=== PATIENT | female | born 1950 | race Caucasian/White ===

== ENCOUNTER → 2018-10-19 | Day surgery (SDC) | payer OTHER ==
[2018-10-18 09:59] LABS: BASOPHILS # (AUTO) 0.1 (0.0-0.1); BASOPHILS % 0.5 % (0.0-1.0); EOSINOPHILS # (AUTO) 0.2 (0.0-0.4); EOSINOPHILS % 2.2 % (0.0-6.0); HEMATOCRIT 40.5 % (34.2-44.1); HEMOGLOBIN 12.6 g/dL (12.0-16.0); LYMPHOCYTES % 9.3 % (18.0-39.1); MEAN CORPUSCULAR HEMOGLOBIN 29.3 pg (28-32); MEAN CORPUSCULAR HGB CONC 31.1 g/dL (31-35); MEAN CORPUSCULAR VOLUME 94.2 fL (81-99); MONOCYTES # (AUTO) 0.8 (0.2-0.8); MONOCYTES % 7.4 % (4.4-11.3); NEUTROPHILS # (AUTO) 8.3 (2.1-6.9); NEUTROPHILS % 79.8 % (38.7-80.0); PLATELET COUNT 290 x10e3/uL (140-360); RED CELL DISTRIBUTION WIDTH 17.9 % (11.7-14.4)
--- NOTE | 2018-10-18 10:14 | Diagnostic Imaging Report ---
PROCEDURE: X-RAY CHEST, TWO VIEWS COMPARISON: Patients [facility], DX, CHEST SINGLE (PORTABLE), 02/05/2014, 16:09. INDICATIONS: PRE-OP, DENIES CHEST COMPLAINTS FINDINGS: LUNGS: No consolidations or edema. PLEURA: No effusions or pneumothorax. HEART & MEDIASTINUM: The heart is within normal size-limits. Tortuous thoracic aorta. Focal eventration in the midportion of the left hemidiaphragm. BONES & SOFT TISSUES: No acute findings. Degenerative changes of both shoulders. CONCLUSION: No acute thoracic abnormality. Mayco Delgado D.O. Dictated by: Mayco Delgado D.O. on 10/18/2018 at 10:24 Electronically approved by: Mayco Delgado D.O. on 10/18/2018 at 10:24
[2018-10-18 10:34] LABS: BLOOD UREA NITROGEN 10 mg/dL (7-26); BUN/CREATININE RATIO 13 (6-25); CALCIUM 9.5 mg/dL (8.4-10.2); CARBON DIOXIDE 24 mmol/L (22-29); CHLORIDE 101 mmol/L (98-107); CREATININE, SERUM 0.75 mg/dL (0.57-1.11); EST GLOMERULAR FILTRATION RATE > 60 ML/MIN (60-); GLUCOSE 99 mg/dL (74-118); SODIUM 137 mmol/L (136-145)
[~2018-10-19] MED LIST: ACETAMINOPHEN 1000 MG/100 ML IV ONE; ADVAIR 500/501 EA INH; ALENDRONATE SOD70 MG; ALLERGY TAB; ASPIR 8181 MG PO; ASPIRIN325 MG PO; ATORVASTATIN CA40 MG PO; BUPIVACAINE HCL 0.5% INJ 30 ML VIAL INJ ONE; CALCIUM PO; CALCIUM600 MG PO; CEFAZOLIN SOD 2 GM/D5W 50ML 50 ML IV ONE; CITALOPRAM HBR20 MG PO; DIGOXIN125 MCG PO; DILT-CD240 MG PO; DILTIAZEM 24HR120 M1 PO; FENTANYL CITRATE/PF 100MCG/2 ML INJ ONE; FISH OIL 1,0001 EAC2 PO; FUROSEMIDE40 MG PO; GLIMEPIRIDE1 MG PO; GLUCOPHAGE500 MG PO; HYDROCHLOROTHIA25 MG PO; IRON325 MG PO; LANOXIN250 MCG PO; LEVOCETIRIZINE D5 MG PO; LIDOCAINE HCL 2% LOCAL INJ 5 ML SDV VIAL INJ ONE; LIPITOR20 MG PO; LISINOPRIL5 MG PO; METFORMIN HCL500 MG PO; METHYLENE BLUE 1% INJ 10 ML VIAL INJ ONE; MIDAZOLAM HCL 2 MG/2 ML VIAL ONE; OMEPRAZOLE40 MG PO; ONDANSETRON HCL INJ 2 MG/ML VIAL ONE; PHENYLEPHRINE HCL 1% 10 MG/ML VIAL ONE; PROPOFOL IV EMULSION 10 MG/ML 20 ML VIAL ONE; ROCURONIUM BROMIDE 10 MG/ML 5ML VIAL ONE; SEVOFLURANE INHAL SOLN 250 ML PEN BTL ONE; SPIRIVA18 MCG INH; SUGAMMADEX SODIUM 200 MG/2 ML VIAL IV ONE; ULTRAM50 MG PO; XARELTO15 MG; XOPENEX HFA15 GM INH; ZYRTEC10 M3 PO
--- OUTSIDE RECORDS SUMMARY | 2018-10-19 07:09 | XMS REPORT ---
Author Author [facility] Address Unknown Phone Unavailable Care Team Providers Care Tennis Net Maker Name Role Phone PRECIOUS PELAEZ Unavailable Unavailable Matthew JACOME Unavailable Unavailable Problems This patient has no known problems. Allergies, Adverse Reactions, Alerts This patient has no known allergies or adverse reactions. Medications This patient has no known medications. Results Test Description Test Time Test Comments Text Results Atomic Results Result Comments CHEST 2 VIEWS 2018-10-18 10:24:00 [facility] [address] [address] Patient Name: MARIANO DELACRUZ MR #: [id number] : 1950 Age/Sex: 68/F Req #: [id number] Adm Physician: Ordered by: PRECIOUS PELAEZ MD Report #: [id number] Location: IN Room/Bed: Procedure: [id number] DX/CHEST 2 VIEWS Exam Date: Exam Time: REPORT STATUS: Signed PROCEDURE: X-RAY CHEST, TWO VIEWS COMPARISON: [facility], , CHEST SINGLE (PORTABLE), 02/05/2014, 16:09. INDICATIONS: PRE-OP, DENIES CHEST COMPLAINTS FINDINGS: LUNGS: No consolidations or edema. PLEURA: No effusions or pneumothorax. HEART MEDIASTINUM: The heart is within normal size-limits. Tortuous thoracic aorta. Focal eventration in the midportion of the left hemidiaphragm. BONES SOFT TISSUES: No acute findings. Degenerative changes of both shoulders. CONCLUSION: No acute thoracic abnormality. Mae Delgado D.O. Dictated by: Mae Delgado D.O. on 10/18/2018 at 10:24 Electronically approved by: Mae Delgado D.O. on 10/18/2018 at 10:24 Dictated By: MAE DELGADO DO 1024 Transcribed By: KIRILL on 10/18/18 1024 COPY TO: PRECIOUS PELAEZ MD BREAST ULTRASOUND CORE BIOPSY RIGHT 2018-10-02 10:41:25 - BREAST ULTRASOUND CORE BIOPSY RIGHTULTRASOUND GUIDED BIOPSY RIGHT BREAST WITH MARKING DEVICE INSERTED: 09/28/2018CLINICAL: Ultrasound biopsy, right breast. Comparison is made to exams dated 09/15/2018 ultrasound, [facility], and 12/23/2015 mamm[facility] - [facility]. An ultrasound guided biopsy using real-time ultrasound was performed for the palpable spiculated irregular shaped mass located in the right breast at 9 o'clock, 13 cm from the nipple. This was described on the previous mammography and ultrasound reports. The skin was prepped in the usual manner. Local anesthetic was administered to the access site. The abnormality was approached from the lateral aspect. A biopsy needle was placed adjacent to the abnormality under ultrasound guidance. Once the needle was documented to be in the correct location, a specimen was obtained using a MISSION biopsy device. A clip was inserted into the biopsy cavity. The specimen was sent to the laboratory for pathological analysis. IMPRESSION: ULTRASOUND GUIDED BIOPSYUltrasound guided biopsy of the mass in the right breast at 9 o'clock, posterior depth, was successful with no apparent post procedure complications. Waiting for pathology results. A final report will be issued when these become available. FINAL PATHOLOGY:Infiltrating ductal carcinoma (Gaines Headley score 5/9) RECOMMENDATION:Concordant findings, malignant biopsy. Surgical consultation for further management, and complete excision is recommended at this time.Gurdeep Hussein M.D. ss/:10/02/2018 10:41:25 Entry: - 10/02/2018 11:17:12Imaging Technologist: Anna CORDOBA, [facility]- DIAG MAMM RIGHT CAD DIGITAL 2018-09-28 09:05:09 - DIAG MAMM RIGHT CAD DIGITALUNILATERAL RIGHT DIGITAL DIAGNOSTIC MAMMOGRAM WITH CAD - RIGHT BREAST POST-PROCEDURE IMAGING FOR MARKER PLACEMENT: 09/28/2018CLINICAL: Post clip placement. Current mammographic images were evaluated by either a [employer] M-Vu or a CARDFREE ImageChecker CAD (computer aided detection system). Comparison is made to exams dated 09/15/2018 mammogram - [facility], 12/23/2015 mammogram, and 07/05/2013 mammogram - [facility]. The tissue of the right breast is predominantly fatty. Postprocedure mammogram demonstrates biopsy marker clip and clip within the biopsied right breast mass at 9 o'clock, 13 cm from the nipple.IMPRESSION: POST PROCEDURE IMAGING FOR MARKER PLACEMENTSuccessful biopsy marker placement in the biopsied right breast mass.Gurdeep Hussein M.D. ss/:09/28/2018 09:05:09 Legal Aide: Wanda CORDOBA, [facility] BI-RADS: Post-procedure mammogram for marker placement RIBS UNILAT W/CXR [address] [address] Patient Name: MARIANO DELACRUZ MR #: [id number] : 1950 Age/Sex: 67/F Req #: [id number] Adm Physician: Ordered by: HEATHER JACOME MD Report #: [id number] Location: ER Room/Bed: Procedure: [id number] DX/RIBS UNILAT W/CXR Exam Date: 08/27/17 Exam Time: 1110 REPORT STATUS: Signed EXAMINATION: Chest, PA RIBS UNILAT W/CXR INDICATION: Chest pain COMPARISON: Portable chest 02/05/2014 FINDINGS: LINES: None. Heart: Normal cardiac silhouette. Vascular: The pulmonary vasculature is within normal limits. Atherosclerotic calcifications of the aortic arch. Mediastinum: No mediastinal, hilar, or axillary mass or lymphadenopathy. Lungs: No parenchymal mass. No focal consolidation. Pleura: No pleural effusion. No pneumothorax. Bones: No acute osseous abnormality. Degenerative changes of the thoracic spine. Transverse fracture of the left lateral ninth rib. Degenerative changes of the left shoulder. Soft tissues: Normal. Impression: No acute radiographic abnormality. Left ninth rib fracture. Signed by: Dr. Dylan Strange M.D. on 08/27/2017 11:49 AM Dictated By: DYLAN STRANGE MD 1149 Transcribed By: YARY on 08/27/17 1149 COPY TO: HEATHER JACOME MD
[2018-10-19 13:00] VITALS: BP 100/61
--- NOTE | 2018-10-19 15:47 | Operative Report ---
DATE OF PROCEDURE: October 19, 2018 PREOPERATIVE DIAGNOSIS: Carcinoma of the right breast. POSTOPERATIVE DIAGNOSIS: Carcinoma of the right breast. PROCEDURES PERFORMED 1. Right segmental mastectomy. 1. Right axillary sentinel lymph node excision with lymph node mapping. REFINERY OPERATOR POLYMERIZATION PLANT: None. ANESTHESIA: General. INDICATIONS AND FINDINGS: The patient is a 68-year-old female who presented with a mass in the right breast. Biopsy revealed infiltrating ductal cell carcinoma. At surgery patient was found to have a tumor within the resected specimen from the right breast with the margins grossly free of tumor. A lymph node that had some small amount of blue dye in it was identified, and this was excised, submitted for frozen section, which was negative for metastatic cancer. TECHNIQUE: After adequate general anesthesia, patient in supine position, the right breast and axilla were prepped and draped in sterile fashion with ChloraPrep solution. The mass was palpable in the right breast at approximately the 9 o'clock position. An elliptical incision was made over the area of the palpable mass and carried down to subcutaneous tissue, and the segment of the breast encompassing the mass was completely excised down to the chest wall. Grossly the inferior margin seemed like it might be close, and additional tissue was taken from the inferior margin and the inferior margin marked with sutures, and the lateral margin on the initial resected specimen was marked with sutures to orient the specimen. Hemostasis was achieved with electrocautery. The wound was irrigated with sterile water, infiltrated with 1/2 percent Marcaine and was then closed with 3-0 Vicryl for the subcutaneous tissue and mari for the skin. The patient, prior to starting this segmental mastectomy, had had dilute methylene blue injected into the breast at the lateral aspect as the preop nuclear testing did not identify a sentinel node. Exam with the Neoprobe did not reveal any area of increased activity suggestive of a sentinel node. Incision was then made in the right axilla, carried down to the subcutaneous tissues down to the clavipectoral fascia, which was incised, and then a lymph node containing blue dye was identified and this was excised. It was submitted for frozen section, which was negative for metastatic disease. The lymph node was slightly enlarged, being about 1.3 cm in diameter. No other lymph nodes containing blue dye were identified, and exam with the Neoprobe once again did not reveal any areas of increased activity. Hemostasis was seen to be adequate. The wound was irrigated with sterile water. It was infiltrated with 1/2 percent Marcaine and was then closed with 3-0 Vicryl for the subcutaneous tissue and mari for the skin. A sterile dressing was applied to each wound. The patient tolerated the procedure well. Estimated blood loss for the entire procedure was 20 mL. There were no complications. All counts were correct. The patient was taken to the recovery room in satisfactory condition. Job#: [id number]
--- NOTE | 2018-10-19 20:18 | Diagnostic Imaging Report ---
Lymphoscintigraphy Reason for Exam: Right breast cancer; scheduled for sentinel lymph node biopsy and segmental mastectomy Radiopharmaceutical: Tc-99m filtered sulfur colloid 670 microcuries Report: The radiotracer was given as two separate injections intradermally at the edge of the right areola. No focal areas of tracer accumulation are seen in the right axilla. No tracts of tracer are seen emanating from the areolar region. No accumulation of tracer is seen in the midline of the chest or in the neck. Impression: No sentinel lymph nodes are identified in the right axilla, right neck or midline of the chest. Signed by: Dr. Chiqui Matthews M.D. on 10/19/2018 8:15 PM
== END | disposition home or self-care (01) ==
LOC: NM 07:07
PROVIDERS: ATTEND Surgery
DX: C50.911 Malignant neoplasm of unspecified site of right female breast (principal); Z88.7 Allergy status to serum and vaccine; J44.9 Chronic obstructive pulmonary disease, unspecified; G47.33 Obstructive sleep apnea (adult) (pediatric); I48.91 Unspecified atrial fibrillation; I50.9 Heart failure, unspecified; K21.9 Gastro-esophageal reflux disease without esophagitis; E11.9 Type 2 diabetes mellitus without complications; Z87.891 Personal history of nicotine dependence; Z01.810 Encounter for preprocedural cardiovascular examination; Z01.812 Encounter for preprocedural laboratory examination; Z01.811 Encounter for preprocedural respiratory examination
CPT/HCPCS: 36415; 71046; 78195; 80048; 82948; 85025; 88305; 88307; 88333; 93005; A9541; J0690; J2001; J2250; J2370; J2405

== ENCOUNTER → 2018-11-29 | Day surgery (SDC) | payer OTHER ==
[2018-11-27 10:12] LABS: BASOPHILS % 0.6 % (0.0-1.0); EOSINOPHILS # (AUTO) 0.1 (0.0-0.4); HEMATOCRIT 38.2 % (34.2-44.1); LYMPHOCYTES # (AUTO) 0.9 (1.0-3.2); LYMPHOCYTES % 13.5 % (18.0-39.1); MEAN CORPUSCULAR HEMOGLOBIN 29.1 pg (28-32); MEAN CORPUSCULAR HGB CONC 31.4 g/dL (31-35); MEAN CORPUSCULAR VOLUME 92.5 fL (81-99); MONOCYTES # (AUTO) 0.6 (0.2-0.8); MONOCYTES % 9.5 % (4.4-11.3); NEUTROPHILS # (AUTO) 4.9 (2.1-6.9); NEUTROPHILS % 73.8 % (38.7-80.0); PLATELET COUNT 245 x10e3/uL (140-360); RED BLOOD COUNT 4.13 x10e6/uL (3.6-5.1); RED CELL DISTRIBUTION WIDTH 18.4 % (11.7-14.4)
[2018-11-27 10:33] LABS: ANION GAP 15.4 mmol/L (8-16); BLOOD UREA NITROGEN 13 mg/dL (7-26); BUN/CREATININE RATIO 17 (6-25); CALCIUM 9.3 mg/dL (8.4-10.2); CARBON DIOXIDE 29 mmol/L (22-29); CHLORIDE 99 mmol/L (98-107); CREATININE, SERUM 0.77 mg/dL (0.57-1.11); EST GLOMERULAR FILTRATION RATE > 60 ML/MIN (60-); GLUCOSE 75 mg/dL (74-118); POTASSIUM 4.4 mmol/L (3.5-5.1); SODIUM 139 mmol/L (136-145)
[~2018-11-29] MED LIST changes: -ACETAMINOPHEN 1000 MG/100 ML IV ONE; -ALENDRONATE SOD70 MG; +ALENDRONATE SOD70 MG PO; -BUPIVACAINE HCL 0.5% INJ 30 ML VIAL INJ ONE; +DEXTROSE 5% 250ML 250 ML IV ONE; +HEPARIN SOD (PORCINE) 1000 UNIT/ML SDV ONE; -METHYLENE BLUE 1% INJ 10 ML VIAL INJ ONE; -MIDAZOLAM HCL 2 MG/2 ML VIAL ONE; -ROCURONIUM BROMIDE 10 MG/ML 5ML VIAL ONE; +SODIUM CHLORIDE 0.9% 100 ML ONE; -SUGAMMADEX SODIUM 200 MG/2 ML VIAL IV ONE
--- NOTE | 2018-11-29 08:31 | Operative Report ---
DATE OF PROCEDURE: November 29, 2018 PREOPERATIVE DIAGNOSIS: Carcinoma of the right breast. POSTOPERATIVE DIAGNOSIS: Carcinoma of the right breast. PROCEDURE: Placement of left subclavian vein subcutaneous venous access port. FUNERAL CAR DRIVER: None. ANESTHESIA: General. INDICATIONS AND FINDINGS: The patient is a 68-year-old female with carcinoma of the right breast who is to be treated with chemotherapy. At surgery, there were no abnormalities in the area of the port placement. Blood aspirated freely from the port at the end of the procedure. The tip of the catheter was seen to be in the superior vena cava. TECHNIQUE: After adequate general anesthesia, with the patient in the supine position, the subclavian areas were prepped and draped in sterile fashion with ChloraPrep solution. Left subclavian vein was aspirated. J-wire was introduced and passed easily without resistance. Position of the wire in the superior vena cava was confirmed with fluoroscopy. Incision was then made in the deltopectoral groove with the wire exiting through the wound. A subcutaneous pocket was created in the inferior portion of the wound. Peel-away introducing sheath and dilator were passed over the guidewire, and the catheter, which had been flushed with heparinized saline, was passed through the sheath and positioned in the superior vena cava under fluoroscopy. The catheter was aspirated and found to aspirate blood freely. It was then flushed with heparinized saline. The catheter was then cut to the appropriate length and connected to the subcutaneous port, which had also been flushed with heparinized saline. The port was then placed in the subcutaneous pocket and held in the pocket with sutures of 2-0 Ethibond. The entire port and catheter were inspected with fluoroscopy. There were no kinks, and the catheter tip was seen to be in the superior vena cava. The wound was inspected for hemostasis, which was seen to be adequate. The wound was then closed with 3-0 Vicryl in the subcutaneous tissue and 4-0 Vicryl subcuticular to the skin. Dermabond and sterile dressing were applied to the wound. Patient tolerated the procedure well. Estimated blood loss was 10 mL. There were no complications. All counts were correct. Patient was taken to the recovery room in satisfactory condition. Job#: [id number]
--- NOTE | 2018-11-29 08:50 | Diagnostic Imaging Report ---
EXAMINATION: CHEST SINGLE (PORTABLE) INDICATION: ^line placement COMPARISON: None FINDINGS: AP view TUBES and LINES: Left-sided portacatheter with tip in low SVC. LUNGS: Lungs are well inflated. Lungs are clear. There is perihilar interstitial opacities, consistent with interstitial edema. PLEURA: No pleural effusion or pneumothorax. HEART AND MEDIASTINUM: Cardiac size is mildly enlarged. There are atherosclerotic calcifications within the aorta. BONES AND SOFT TISSUES: Moderate right and severe left degenerative changes in the glenohumeral joints. No acute osseous lesion. Soft tissues are unremarkable. UPPER ABDOMEN: No free air under the diaphragm. IMPRESSION: 1. Left-sided portacatheter with tip at low SVC. 2. Mild cardiomegaly with interstitial edema. Signed by: Dr. Brandon Hickman M.D. on 11/29/2018 8:47 AM
[2018-11-29 08:55] VITALS: BP 104/76
== END | disposition home or self-care (01) ==
LOC: OR 05:23
PROVIDERS: ATTEND Surgery
DX: C50.911 Malignant neoplasm of unspecified site of right female breast (principal); J00 Acute nasopharyngitis [common cold]; J44.9 Chronic obstructive pulmonary disease, unspecified; E11.9 Type 2 diabetes mellitus without complications; G47.33 Obstructive sleep apnea (adult) (pediatric); I11.0 Hypertensive heart disease with heart failure; I50.9 Heart failure, unspecified; I48.91 Unspecified atrial fibrillation; E78.5 Hyperlipidemia, unspecified; K21.9 Gastro-esophageal reflux disease without esophagitis; M19.90 Unspecified osteoarthritis, unspecified site; Z01.812 Encounter for preprocedural laboratory examination; Z79.02 Long term (current) use of antithrombotics/antiplatelets; Z79.84 Long term (current) use of oral hypoglycemic drugs
CPT/HCPCS: 36415 ×2; 36561; 77001; 80048; 82948; 85025; C1751; J0690; J1644; J2001; J2370; J2405; J2704; J7050; J7070; 71045

== ENCOUNTER 2022-01-16 09:20 | Inpatient (IN) | payer OTHER ==
[~2022-01-16] VITALS: Ht 170.2 cm; Wt 114.8 kg
[~2022-01-16 09:20] MED LIST changes: -CEFAZOLIN SOD 2 GM/D5W 50ML 50 ML IV ONE; -DEXTROSE 5% 250ML 250 ML IV ONE; -FENTANYL CITRATE/PF 100MCG/2 ML INJ ONE; -HEPARIN SOD (PORCINE) 1000 UNIT/ML SDV ONE; -LIDOCAINE HCL 2% LOCAL INJ 5 ML SDV VIAL INJ ONE; -ONDANSETRON HCL INJ 2 MG/ML VIAL ONE; -PHENYLEPHRINE HCL 1% 10 MG/ML VIAL ONE; -PROPOFOL IV EMULSION 10 MG/ML 20 ML VIAL ONE; -SEVOFLURANE INHAL SOLN 250 ML PEN BTL ONE; -SODIUM CHLORIDE 0.9% 100 ML ONE
[2022-01-16 09:49] LABS: BASOPHILS % 0.1 % (0.0-1.0); EOSINOPHILS % 0.1 % (0.0-6.0); HEMATOCRIT 35.8 % (34.2-44.1); HEMOGLOBIN 12.1 g/dL (12.0-16.0); LYMPHOCYTES # (AUTO) 0.5 (1.0-3.2); MEAN CORPUSCULAR HEMOGLOBIN 31.2 pg (28-32); MEAN CORPUSCULAR HGB CONC 33.8 g/dL (31-35); MEAN CORPUSCULAR VOLUME 92.3 fL (81-99); MONOCYTES # (AUTO) 0.4 (0.2-0.8); MONOCYTES % 4.1 % (4.4-11.3); NEUTROPHILS # (AUTO) 9.1 (2.1-6.9); NEUTROPHILS % 90.1 % (38.7-80.0); PLATELET COUNT 318 x10e3/uL (140-360); RED BLOOD COUNT 3.88 x10e6/uL (3.6-5.1); RED CELL DISTRIBUTION WIDTH 16.5 % (11.7-14.4)
[2022-01-16 09:58] LABS: INR 0.89; PROTHROMBIN TIME 12.9 seconds (11.9-14.5)
[2022-01-16 09:59] LABS: PARTIAL THROMBOPLASTIN TIME 28.6 seconds (23.8-35.5)
[2022-01-16 10:10] LABS: ALBUMIN 3.7 g/dL (3.5-5.0); ALBUMIN/GLOBULIN RATIO 1.1 (0.8-2.0); ANION GAP 17.4 mmol/L (8-16); CALCIUM 10.3 mg/dL (8.4-10.2); CREATININE, SERUM 1.32 mg/dL (0.57-1.11); MAGNESIUM 1.8 MG/DL (1.3-2.1); POTASSIUM 4.4 mmol/L (3.5-5.1)
[2022-01-16 10:15] LABS: CREATINE KINASE MB 1.7 ng/mL (0-5.0)
[2022-01-16] MEDS ORDERED: ONDANSETRON HCL INJ 2MG/ML 2ML 2 MG/ML VIAL IV ONE (10:30)
[2022-01-16] MEDS ORDERED: BENZOCAINE/TETRACAINE/BUTAMBEN AERO SPRAY 56 GM CAN TOP ONE (11:15)
[2022-01-16] MEDS ORDERED: FENTANYL CITRATE/PF 100MCG/2 ML INJ IV ONE (11:30)
[2022-01-16] MEDS ORDERED: DIATRIZOATE MEGL/DIATRIZOA SOD 30 ML BTL PO ONE (11:58)
[2022-01-16] MEDS: PIPERACILLIN/TAZOBACTAM 2.25 GM in SODIUM CHLORIDE 0.9% 50ML 50 ML IV SCH ×4 (12:00→23:09)
[2022-01-16] MEDS: SODIUM CHLORIDE 0.9% 1000ML 1,000 ML IV SCH ×2 (12:14→20:33)
[2022-01-16] MEDS: Morphine 4mg Syringe 4 MG/ML INJ IV PRN ×3 (12:15→22:18)
[2022-01-16 14:07] VITALS: BP 117/79
[2022-01-16 16:00] VITALS: BP 105/67
[2022-01-16] MEDS: ONDANSETRON HCL INJ 2MG/ML 2ML 2 MG/ML VIAL IV PRN ×2 (17:15→22:18)
[2022-01-16 19:15] LABS: CREATINE KINASE MB 1.8 ng/mL (0-5.0)
[2022-01-16 20:00] VITALS: BP_SYST 104; BP_SYST 106; BP_DIAS 65; BP_DIAS 79
[2022-01-17] VITALS (7 sets, daily range): BP systolic 92–116; BP diastolic 57–68
[2022-01-17 05:33] LABS: BASOPHILS % 0.3 % (0.0-1.0); EOSINOPHILS # (AUTO) 0.1 (0.0-0.4); EOSINOPHILS % 0.9 % (0.0-6.0); HEMATOCRIT 35.3 % (34.2-44.1); HEMOGLOBIN 11.4 g/dL (12.0-16.0); LYMPHOCYTES # (AUTO) 0.7 (1.0-3.2); LYMPHOCYTES % 7.8 % (18.0-39.1); MEAN CORPUSCULAR HEMOGLOBIN 30.6 pg (28-32); MEAN CORPUSCULAR HGB CONC 32.3 g/dL (31-35); MEAN CORPUSCULAR VOLUME 94.6 fL (81-99); MONOCYTES # (AUTO) 0.8 (0.2-0.8); MONOCYTES % 8.5 % (4.4-11.3); NEUTROPHILS # (AUTO) 7.7 (2.1-6.9); PLATELET COUNT 290 x10e3/uL (140-360); RED BLOOD COUNT 3.73 x10e6/uL (3.6-5.1); RED CELL DISTRIBUTION WIDTH 16.5 % (11.7-14.4)
[2022-01-17] MEDS: PIPERACILLIN/TAZOBACTAM 2.25 GM in SODIUM CHLORIDE 0.9% 50ML 50 ML IV SCH ×4 (05:40→23:32)
[2022-01-17 05:59] LABS: ANION GAP 16.5 mmol/L (8-16); CALCIUM 9.4 mg/dL (8.4-10.2); CREATININE, SERUM 1.15 mg/dL (0.57-1.11); POTASSIUM 4.5 mmol/L (3.5-5.1)
[2022-01-17 06:10] LABS: CREATINE KINASE MB 1.5 ng/mL (0-5.0)
[2022-01-17] MEDS: SODIUM CHLORIDE 0.9% 1000ML 1,000 ML IV SCH (07:45)
[2022-01-17] MEDS: Morphine 4mg Syringe 4 MG/ML INJ IV PRN ×2 (08:56→20:00)
[2022-01-17] MEDS: ONDANSETRON HCL INJ 2MG/ML 2ML 2 MG/ML VIAL IV PRN ×2 (08:56→20:40)
[2022-01-17] MEDS ORDERED: DIGOXIN INJ 0.25 MG/ML 2 ML AMP IV PRN (09:15)
[2022-01-17] MEDS ORDERED: HYDRALAZINE HCL 20 MG/ML VIAL IV PRN (09:15)
[2022-01-17] MEDS ORDERED: ALBUTEROL/IPRATROPIUM 3 ML NEB NEB PRN (09:15)
[2022-01-17] MEDS: DEXTROSE 5%/0.45% SOD CHL 1,000 ML IV SCH ×2 (11:48→20:38)
[2022-01-17] MEDS: ALBUTEROL/IPRATROPIUM 3 ML NEB NEB SCH ×3 (13:00→19:30)
[2022-01-17] MEDS ORDERED: ALBUTEROL/IPRATROPIUM 3 ML NEB NEB SCH (13:00)
[2022-01-17] MEDS: ENOXAPARIN INJ 80 MG/0.8 ML SYR SC SCH (20:47)
[2022-01-18] VITALS (7 sets, daily range): BP systolic 89–119; BP diastolic 70–78
[2022-01-18] MEDS: ALBUTEROL/IPRATROPIUM 3 ML NEB NEB SCH ×5 (00:25→23:58)
[2022-01-18] MEDS: Morphine 4mg Syringe 4 MG/ML INJ IV PRN ×3 (02:52→20:30)
[2022-01-18] MEDS: ONDANSETRON HCL INJ 2MG/ML 2ML 2 MG/ML VIAL IV PRN ×2 (02:52→11:55)
[2022-01-18 05:07] LABS: BASOPHILS % 0.5 % (0.0-1.0); EOSINOPHILS # (AUTO) 0.1 (0.0-0.4); EOSINOPHILS % 1.4 % (0.0-6.0); HEMATOCRIT 33.8 % (34.2-44.1); HEMOGLOBIN 11.2 g/dL (12.0-16.0); LYMPHOCYTES # (AUTO) 0.6 (1.0-3.2); LYMPHOCYTES % 6.4 % (18.0-39.1); MEAN CORPUSCULAR HEMOGLOBIN 31.2 pg (28-32); MEAN CORPUSCULAR HGB CONC 33.1 g/dL (31-35); MEAN CORPUSCULAR VOLUME 94.2 fL (81-99); MONOCYTES # (AUTO) 0.8 (0.2-0.8); MONOCYTES % 9.3 % (4.4-11.3); NEUTROPHILS # (AUTO) 7.1 (2.1-6.9); NEUTROPHILS % 81.9 % (38.7-80.0); PLATELET COUNT 281 x10e3/uL (140-360); RED BLOOD COUNT 3.59 x10e6/uL (3.6-5.1); RED CELL DISTRIBUTION WIDTH 16.5 % (11.7-14.4)
[2022-01-18] MEDS: DEXTROSE 5%/0.45% SOD CHL 1,000 ML IV SCH ×2 (05:30→13:17)
[2022-01-18] MEDS: PIPERACILLIN/TAZOBACTAM 2.25 GM in SODIUM CHLORIDE 0.9% 50ML 50 ML IV SCH ×3 (05:31→17:02)
[2022-01-18 07:29] LABS: ANION GAP 11.8 mmol/L (8-16); CALCIUM 8.9 mg/dL (8.4-10.2); CREATININE, SERUM 1.08 mg/dL (0.57-1.11); POTASSIUM 3.8 mmol/L (3.5-5.1)
[2022-01-18] MEDS: ENOXAPARIN INJ 80 MG/0.8 ML SYR SC SCH (09:26)
[2022-01-19] VITALS: BP 112/90
[2022-01-19] MEDS: PIPERACILLIN/TAZOBACTAM 2.25 GM in SODIUM CHLORIDE 0.9% 50ML 50 ML IV SCH ×5 (00:34→23:32)
[2022-01-19] MEDS: DEXTROSE 5%/0.45% SOD CHL 1,000 ML IV SCH ×3 (00:35→21:10)
[2022-01-19] MEDS: Morphine 4mg Syringe 4 MG/ML INJ IV PRN (03:31)
[2022-01-19 04:26] VITALS: BP 106/67
[2022-01-19 06:25] LABS: ANION GAP 9.5 mmol/L (8-16); CALCIUM 8.7 mg/dL (8.4-10.2); CREATININE, SERUM 1.03 mg/dL (0.57-1.11); POTASSIUM 3.5 mmol/L (3.5-5.1)
[2022-01-19 06:27] LABS: MAGNESIUM 1.8 MG/DL (1.3-2.1)
[2022-01-19] MEDS: ALBUTEROL/IPRATROPIUM 3 ML NEB NEB SCH ×3 (06:57→19:55)
[2022-01-19 08:00] VITALS: BP 92/69
[2022-01-19 08:32] VITALS: BP 92/69
[2022-01-19] MEDS ORDERED: BUPIVACAINE 0.25% 30ML SDV ONE (08:34)
[2022-01-19] MEDS: METOPROLOL TARTRATE INJ 1 MG/ML VIAL IV PRN ×2 (10:28→23:32)
[2022-01-19] MEDS ORDERED: FENTANYL CITRATE/PF 100MCG/2 ML INJ ONE ×2 (12:20→14:08)
[2022-01-19 15:54] VITALS: BP 108/77
[2022-01-19] MEDS ORDERED: EPHEDRINE SULFATE INJ 50 MG/ML VIAL ONE (17:42)
[2022-01-19] MEDS ORDERED: POVIDONE IODINE 0.05% 0.05 % ML PO ONE (17:42)
[2022-01-19] MEDS ORDERED: SEVOFLURANE INHAL SOLN 250 ML PEN BTL ONE (17:42)
[2022-01-19] MEDS ORDERED: DEXAMETHASONE SOD PHOS INJ 4 MG/ML SDV ONE (17:42)
[2022-01-19] MEDS ORDERED: ROCURONIUM BROMIDE 10 MG/ML 5ML VIAL IV ONE (17:42)
[2022-01-19] MEDS ORDERED: NEOSTIGMINE 1 MG/ML 10ML VIAL ONE (17:42)
[2022-01-19] MEDS ORDERED: ONDANSETRON HCL INJ 2MG/ML 2ML 2 MG/ML VIAL ONE (17:42)
[2022-01-19] MEDS ORDERED: GLYCOPYRROLATE INJ 0.2 MG/ML VIAL ONE (17:42)
[2022-01-19] MEDS ORDERED: PHENYLEPHRINE HCL 1% 10 MG/ML VIAL ONE (17:42)
[2022-01-19] MEDS ORDERED: LIDOCAINE HCL 2% LOCAL INJ 5 ML SDV VIAL INJ ONE (17:42)
[2022-01-19] MEDS ORDERED: PROPOFOL IV EMULSION 10 MG/ML 20 ML VIAL ONE (17:42)
[2022-01-19 21:50] VITALS: BP 91/67
[2022-01-20] MEDS: ALBUTEROL/IPRATROPIUM 3 ML NEB NEB SCH ×4 (00:15→19:00)
[2022-01-20] MEDS: Morphine 4mg Syringe 4 MG/ML INJ IV PRN ×3 (04:30→17:44)
[2022-01-20] MEDS: PIPERACILLIN/TAZOBACTAM 2.25 GM in SODIUM CHLORIDE 0.9% 50ML 50 ML IV SCH ×4 (05:08→23:36)
[2022-01-20 05:44] VITALS: BP 99/70
[2022-01-20] MEDS: DEXTROSE 5%/0.45% SOD CHL 1,000 ML IV SCH ×2 (07:39→21:17)
[2022-01-20 08:43] VITALS: BP 100/60
[2022-01-20] MEDS: METOCLOPRAMIDE HCL 10 MG/2ML VIAL IV SCH ×4 (08:43→23:36)
[2022-01-20 08:44] VITALS: BP 100/60
[2022-01-20] MEDS: ONDANSETRON HCL INJ 2MG/ML 2ML 2 MG/ML VIAL IV PRN ×2 (09:15→17:43)
[2022-01-20] MEDS: METOPROLOL TARTRATE INJ 1 MG/ML VIAL IV PRN (09:54)
[2022-01-20 16:18] VITALS: BP 92/72
[2022-01-20 20:00] VITALS: BP 107/51
[2022-01-21] VITALS (8 sets, daily range): BP systolic 87–118; BP diastolic 52–77
[2022-01-21] MEDS: ALBUTEROL/IPRATROPIUM 3 ML NEB NEB SCH ×4 (00:05→19:00)
[2022-01-21] MEDS: DEXTROSE 5%/0.45% SOD CHL 1,000 ML IV SCH (03:57)
[2022-01-21 05:03] LABS: BASOPHILS % 0.1 % (0.0-1.0); EOSINOPHILS # (AUTO) 0.2 (0.0-0.4); EOSINOPHILS % 3.1 % (0.0-6.0); HEMATOCRIT 32.4 % (34.2-44.1); HEMOGLOBIN 10.4 g/dL (12.0-16.0); LYMPHOCYTES # (AUTO) 0.4 (1.0-3.2); MEAN CORPUSCULAR HGB CONC 32.1 g/dL (31-35); MEAN CORPUSCULAR VOLUME 96.7 fL (81-99); MONOCYTES # (AUTO) 0.7 (0.2-0.8); MONOCYTES % 9.5 % (4.4-11.3); NEUTROPHILS # (AUTO) 6.2 (2.1-6.9); NEUTROPHILS % 81.5 % (38.7-80.0); PLATELET COUNT 231 x10e3/uL (140-360); RED BLOOD COUNT 3.35 x10e6/uL (3.6-5.1); RED CELL DISTRIBUTION WIDTH 16.2 % (11.7-14.4)
[2022-01-21 05:22] LABS: ANION GAP 12.3 mmol/L (8-16); CALCIUM 8.7 mg/dL (8.4-10.2); CREATININE, SERUM 1.09 mg/dL (0.57-1.11); POTASSIUM 3.3 mmol/L (3.5-5.1)
[2022-01-21] MEDS: METOCLOPRAMIDE HCL 10 MG/2ML VIAL IV SCH ×3 (05:22→17:13)
[2022-01-21] MEDS: PIPERACILLIN/TAZOBACTAM 2.25 GM in SODIUM CHLORIDE 0.9% 50ML 50 ML IV SCH ×3 (05:22→17:13)
[2022-01-21] MEDS ORDERED: PEG (High)/E-LYTE SOLN 4,000 ML BTL PO ONE (11:00)
[2022-01-21] MEDS: POTASSIUM CHLORIDE 10MEQ EA PO SCH ×3 (11:10→16:21)
[2022-01-21] MEDS ORDERED: BISACODYL 10 MG SUPP PR ONE (16:30)
[2022-01-21] MEDS: ONDANSETRON HCL INJ 2MG/ML 2ML 2 MG/ML VIAL IV PRN (22:13)
[2022-01-21] MEDS: Morphine 4mg Syringe 4 MG/ML INJ IV PRN (22:13)
[2022-01-21] MEDS ORDERED: MAGNESIUM HYDROXIDE 30 ML UDC PO ONE (23:45)
[2022-01-21] MEDS ORDERED: SOD PHOSPHATE/SOD BIPHOSPHATE ENEMA 132 ML BTL PR ONE (23:45)
[2022-01-22] VITALS (7 sets, daily range): BP systolic 90–125; BP diastolic 52–85
[2022-01-22] MEDS: ALBUTEROL/IPRATROPIUM 3 ML NEB NEB SCH ×4 (01:00→18:30)
[2022-01-22] MEDS: METOPROLOL TARTRATE INJ 1 MG/ML VIAL IV PRN ×3 (01:56→22:18)
[2022-01-22] MEDS ORDERED: MAGNESIUM HYDROXIDE 30 ML UDC PO ONE ×5 (02:00→13:00)
[2022-01-22] MEDS ORDERED: SOD PHOSPHATE/SOD BIPHOSPHATE ENEMA 132 ML BTL PR ONE (03:00)
[2022-01-22] MEDS: PIPERACILLIN/TAZOBACTAM 2.25 GM in SODIUM CHLORIDE 0.9% 50ML 50 ML IV SCH ×6 (05:02→23:15)
[2022-01-22] MEDS: METOCLOPRAMIDE HCL 10 MG/2ML VIAL IV SCH ×5 (05:02→23:15)
[2022-01-22 06:15] LABS: BASOPHILS % 0.2 % (0.0-1.0); EOSINOPHILS # (AUTO) 0.1 (0.0-0.4); EOSINOPHILS % 1.2 % (0.0-6.0); HEMATOCRIT 35.8 % (34.2-44.1); HEMOGLOBIN 11.6 g/dL (12.0-16.0); LYMPHOCYTES # (AUTO) 0.5 (1.0-3.2); LYMPHOCYTES % 5.1 % (18.0-39.1); MEAN CORPUSCULAR HEMOGLOBIN 30.7 pg (28-32); MEAN CORPUSCULAR HGB CONC 32.4 g/dL (31-35); MEAN CORPUSCULAR VOLUME 94.7 fL (81-99); MONOCYTES # (AUTO) 0.9 (0.2-0.8); MONOCYTES % 9.5 % (4.4-11.3); NEUTROPHILS # (AUTO) 8.1 (2.1-6.9); NEUTROPHILS % 83.4 % (38.7-80.0); PLATELET COUNT 278 x10e3/uL (140-360); RED BLOOD COUNT 3.78 x10e6/uL (3.6-5.1); RED CELL DISTRIBUTION WIDTH 16.2 % (11.7-14.4)
[2022-01-22 07:00] LABS: ANION GAP 15.5 mmol/L (8-16); CALCIUM 9.4 mg/dL (8.4-10.2); CREATININE, SERUM 1.02 mg/dL (0.57-1.11); POTASSIUM 3.5 mmol/L (3.5-5.1)
[2022-01-22 07:37] LABS: THYROID STIMULATING HORMONE 0.584 uIU/mL (0.350-4.940)
[2022-01-23] VITALS (8 sets, daily range): BP systolic 94–106; BP diastolic 46–72
[2022-01-23] MEDS: ALBUTEROL/IPRATROPIUM 3 ML NEB NEB SCH ×4 (00:05→19:05)
[2022-01-23] MEDS: ONDANSETRON HCL INJ 2MG/ML 2ML 2 MG/ML VIAL IV PRN (00:43)
[2022-01-23] MEDS: Morphine 4mg Syringe 4 MG/ML INJ IV PRN (00:43)
[2022-01-23] MEDS: HYDROCODONE/APAP 10MG-325MG TAB PO PRN (08:55)
[2022-01-23] MEDS: METOCLOPRAMIDE HCL 10 MG/2ML VIAL IV SCH ×2 (12:00→17:34)
[2022-01-23] MEDS: PIPERACILLIN/TAZOBACTAM 2.25 GM in SODIUM CHLORIDE 0.9% 50ML 50 ML IV SCH ×2 (12:00→17:35)
[2022-01-24] VITALS (8 sets, daily range): BP systolic 83–147; BP diastolic 62–102
[2022-01-24] MEDS: ALBUTEROL/IPRATROPIUM 3 ML NEB NEB SCH ×6 (00:05→18:35)
[2022-01-24] MEDS: PIPERACILLIN/TAZOBACTAM 2.25 GM in SODIUM CHLORIDE 0.9% 50ML 50 ML IV SCH ×5 (00:58→23:51)
[2022-01-24] MEDS: METOCLOPRAMIDE HCL 10 MG/2ML VIAL IV SCH ×5 (00:58→23:51)
[2022-01-24] MEDS: HYDROCODONE/APAP 10MG-325MG TAB PO PRN (03:40)
[2022-01-25] VITALS (8 sets, daily range): BP systolic 93–107; BP diastolic 64–82
[2022-01-25] MEDS: ALBUTEROL/IPRATROPIUM 3 ML NEB NEB SCH ×3 (01:35→19:07)
[2022-01-25] MEDS: METOCLOPRAMIDE HCL 10 MG/2ML VIAL IV SCH ×5 (05:29→23:44)
[2022-01-25] MEDS: PIPERACILLIN/TAZOBACTAM 2.25 GM in SODIUM CHLORIDE 0.9% 50ML 50 ML IV SCH ×5 (05:29→23:44)
[2022-01-25 06:26] LABS: BASOPHILS % 0.3 % (0.0-1.0); EOSINOPHILS # (AUTO) 0.2 (0.0-0.4); EOSINOPHILS % 2.7 % (0.0-6.0); LYMPHOCYTES # (AUTO) 0.6 (1.0-3.2); MEAN CORPUSCULAR HEMOGLOBIN 30.5 pg (28-32); MEAN CORPUSCULAR HGB CONC 32.3 g/dL (31-35); MEAN CORPUSCULAR VOLUME 94.5 fL (81-99); MONOCYTES # (AUTO) 0.6 (0.2-0.8); MONOCYTES % 8.7 % (4.4-11.3); NEUTROPHILS # (AUTO) 5.2 (2.1-6.9); NEUTROPHILS % 78.7 % (38.7-80.0); PLATELET COUNT 276 x10e3/uL (140-360); RED BLOOD COUNT 3.28 x10e6/uL (3.6-5.1); RED CELL DISTRIBUTION WIDTH 16.4 % (11.7-14.4)
[2022-01-25 06:54] LABS: ANION GAP 10.4 mmol/L (8-16); CALCIUM 8.4 mg/dL (8.4-10.2); CREATININE, SERUM 0.92 mg/dL (0.57-1.11); POTASSIUM 3.4 mmol/L (3.5-5.1)
[2022-01-25 07:06] LABS: MAGNESIUM 2.4 MG/DL (1.3-2.1); PHOSPHORUS 2.1 MG/DL (2.3-4.7)
[2022-01-25] MEDS: POTASSIUM CHLORIDE 10MEQ EA PO SCH ×3 (10:58→13:46)
[2022-01-25] MEDS: HYDROCODONE/APAP 10MG-325MG TAB PO PRN (20:31)
[2022-01-26] VITALS (8 sets, daily range): BP systolic 96–137; BP diastolic 67–100
[2022-01-26] MEDS: ALBUTEROL/IPRATROPIUM 3 ML NEB NEB SCH ×4 (01:35→18:40)
[2022-01-26] MEDS: METOPROLOL TARTRATE 25 MG TAB PO SCH ×2 (10:25→18:08)
[2022-01-26] MEDS: METOCLOPRAMIDE HCL 10 MG/2ML VIAL IV SCH ×2 (13:40→18:07)
[2022-01-26] MEDS: HYDROCODONE/APAP 10MG-325MG TAB PO PRN (14:46)
[2022-01-27] VITALS (8 sets, daily range): BP systolic 87–107; BP diastolic 53–81
[2022-01-27] MEDS: METOCLOPRAMIDE HCL 10 MG/2ML VIAL IV SCH ×4 (00:03→17:13)
[2022-01-27] MEDS: ALBUTEROL/IPRATROPIUM 3 ML NEB NEB SCH ×4 (00:55→19:20)
[2022-01-27 04:56] LABS: BASOPHILS % 0.7 % (0.0-1.0); EOSINOPHILS # (AUTO) 0.2 (0.0-0.4); EOSINOPHILS % 2.8 % (0.0-6.0); HEMOGLOBIN 12.2 g/dL (12.0-16.0); LYMPHOCYTES # (AUTO) 0.6 (1.0-3.2); LYMPHOCYTES % 10.4 % (18.0-39.1); MEAN CORPUSCULAR HEMOGLOBIN 30.8 pg (28-32); MEAN CORPUSCULAR HGB CONC 31.3 g/dL (31-35); MEAN CORPUSCULAR VOLUME 98.5 fL (81-99); MONOCYTES # (AUTO) 0.7 (0.2-0.8); MONOCYTES % 10.9 % (4.4-11.3); NEUTROPHILS # (AUTO) 4.5 (2.1-6.9); NEUTROPHILS % 73.9 % (38.7-80.0); PLATELET COUNT 223 x10e3/uL (140-360); RED BLOOD COUNT 3.96 x10e6/uL (3.6-5.1); RED CELL DISTRIBUTION WIDTH 16.7 % (11.7-14.4)
[2022-01-27 05:19] LABS: ANION GAP 11.2 mmol/L (8-16); CALCIUM 8.7 mg/dL (8.4-10.2); CREATININE, SERUM 1.24 mg/dL (0.57-1.11); POTASSIUM 4.2 mmol/L (3.5-5.1)
[2022-01-27] MEDS: HYDROCODONE/APAP 10MG-325MG TAB PO PRN (08:48)
[2022-01-27] MEDS: METOPROLOL TARTRATE 25 MG TAB PO SCH ×2 (08:48→16:46)
[2022-01-27] MEDS: MIDODRINE 2.5 MG TAB PO SCH ×2 (11:58→16:10)
[2022-01-27] MEDS: DIGOXIN 0.125 MG TAB PO SCH (12:00)
[2022-01-28] VITALS (7 sets, daily range): BP systolic 91–105; BP diastolic 40–72
[2022-01-28] MEDS: ALBUTEROL/IPRATROPIUM 3 ML NEB NEB SCH ×3 (00:05→12:00)
[2022-01-28] MEDS: METOPROLOL TARTRATE INJ 1 MG/ML VIAL IV PRN (04:26)
[2022-01-28] MEDS: METOCLOPRAMIDE HCL 10 MG/2ML VIAL IV SCH ×4 (05:11→16:48)
[2022-01-28] MEDS ORDERED: DIATRIZOATE MEGL/DIATRIZOA SOD 30 ML BTL PO ONE (05:34)
[2022-01-28] MEDS: METOPROLOL TARTRATE 25 MG TAB PO SCH ×2 (09:00→15:54)
[2022-01-28] MEDS: MIDODRINE 2.5 MG TAB PO SCH ×3 (09:19→16:48)
[2022-01-28] MEDS: DIGOXIN 0.125 MG TAB PO SCH (09:19)
[2022-01-28] MEDS ORDERED: REGLAN5 MG PO (15:10)
[2022-01-28] MEDS ORDERED: MIDODRINE HCL2.5 MG PO (15:11)
[2022-01-28] MEDS ORDERED: HEPARIN 500 UNITS/5ML MDV INJ ONE (17:15)
== END 2022-01-28 17:13 | disposition home health service (06) | DRG 336 ==
LOC: ER 09:36 → ERHOLD 11:50 → MED/SURG 13:08 → MED/SURG3 01-20 11:25
PROVIDERS: ADMIT Internal Medicine; ATTEND Internal Medicine
PROC: 0D9670Z Drainage of Stomach with Drainage Device, Via Natural or Artificial Opening (ICD-10-PCS; 2022-01-16)
PROC: 0DJD4ZZ Inspection of Lower Intestinal Tract, Percutaneous Endoscopic Approach (ICD-10-PCS; 2022-01-19)
PROC: 0DN80ZZ Release Small Intestine, Open Approach (ICD-10-PCS; 2022-01-19)
PROC: 0DNN0ZZ Release Sigmoid Colon, Open Approach (ICD-10-PCS; principal; 2022-01-19 08:30)
DX: K56.50 Intestinal adhesions [bands], unspecified as to partial versus complete obstruction (principal); I48.20 Chronic atrial fibrillation, unspecified; K91.89 Other postprocedural complications and disorders of digestive system; E11.9 Type 2 diabetes mellitus without complications; J44.9 Chronic obstructive pulmonary disease, unspecified; K56.7 Ileus, unspecified; E78.5 Hyperlipidemia, unspecified; Z85.3 Personal history of malignant neoplasm of breast; F17.200 Nicotine dependence, unspecified, uncomplicated; Z88.7 Allergy status to serum and vaccine; N28.9 Disorder of kidney and ureter, unspecified; Z79.84 Long term (current) use of oral hypoglycemic drugs; Z79.01 Long term (current) use of anticoagulants; Z20.822 Contact with and (suspected) exposure to COVID-19; Z99.81 Dependence on supplemental oxygen; E66.01 Morbid (severe) obesity due to excess calories; Z68.39 Body mass index [BMI] 39.0-39.9, adult; I95.1 Orthostatic hypotension
CPT/HCPCS: 36415; 71045; 74018; 74019; 74176; 80048; 80053; 82150; 82550; 82553; 82948; 83690; 83735; 83880; 84100; 84443; 84484; 85025; 85610; 85730; 93005; 93306; 94640; 94799; 97139; 99285; J0690; J1100; J1160; J1650; J2001; J2270; J2370; J2405; J2543; J2710; J2765; J3010; J7030; U0002

== ENCOUNTER 2022-06-16 11:13 | Inpatient (IN) | payer MEDICARE, OTHER ==
[~2022-06-16] VITALS: Ht 170.2 cm; Wt 114.8 kg
[~2022-06-16 11:13] MED LIST changes: +MIDODRINE HCL2.5 MG PO; +REGLAN5 MG PO
[2022-06-16] MEDS ORDERED: HYDROCODONE/APAP 5MG-325MG TAB PO ONE (12:30)
[2022-06-16] MEDS ORDERED: SODIUM CHLORIDE FLUSH 10 ML SYR INJ PRN (14:45)
[2022-06-16] MEDS ORDERED: ONDANSETRON HCL INJ 2MG/ML 2ML 2 MG/ML VIAL IV PRN (14:45)
[2022-06-16 14:56] LABS: BASOPHILS % 0.2 % (0.0-1.0); EOSINOPHILS # (AUTO) 0.2 (0.0-0.4); EOSINOPHILS % 1.9 % (0.0-6.0); HEMATOCRIT 33.2 % (34.2-44.1); HEMOGLOBIN 10.6 g/dL (12.0-16.0); LYMPHOCYTES # (AUTO) 0.8 (1.0-3.2); LYMPHOCYTES % 9.4 % (18.0-39.1); MEAN CORPUSCULAR HEMOGLOBIN 29.4 pg (28-32); MEAN CORPUSCULAR HGB CONC 31.9 g/dL (31-35); MEAN CORPUSCULAR VOLUME 92.2 fL (81-99); MONOCYTES # (AUTO) 0.7 (0.2-0.8); MONOCYTES % 8.7 % (4.4-11.3); NEUTROPHILS # (AUTO) 6.7 (2.1-6.9); NEUTROPHILS % 79.6 % (38.7-80.0); PLATELET COUNT 262 x10e3/uL (140-360); RED CELL DISTRIBUTION WIDTH 15.3 % (11.7-14.4)
[2022-06-16] MEDS ORDERED: FENTANYL 25 MCG/HR PATCH TOP SCH (15:00)
[2022-06-16 15:07] LABS: INR 1.46
[2022-06-16 15:16] LABS: ALBUMIN 2.8 g/dL (3.5-5.0); ALBUMIN/GLOBULIN RATIO 0.7 (0.8-2.0); CALCIUM 8.4 mg/dL (8.4-10.2); CREATININE, SERUM 1.5 mg/dL (0.57-1.11)
[2022-06-16] MEDS ORDERED: POTASSIUM CHLORIDE 20 MEQ TAB CR PO PRN (15:30)
[2022-06-16] MEDS ORDERED: ACETAMINOPHEN 325 MG TAB PO PRN (15:30)
[2022-06-16] MEDS ORDERED: BENZONATATE 100 MG CAP PO PRN (15:30)
[2022-06-16] MEDS ORDERED: HYDRALAZINE HCL 20 MG/ML VIAL IV PRN (15:30)
[2022-06-16] MEDS ORDERED: ALPRAZOLAM 1 MG TAB PO SCH (15:30)
[2022-06-16] MEDS ORDERED: DIPHENHYDRAMINE HCL 25 MG CAP PO PRN (15:30)
[2022-06-16] MEDS ORDERED: LIDOCAINE 4% PATCH TP PRN (15:30)
[2022-06-16] MEDS ORDERED: DEXTROSE 50% SYRINGE 50 ML IV PRN (15:30)
[2022-06-16] MEDS ORDERED: DOCUSATE SODIUM 100 MG CAP PO PRN (15:30)
[2022-06-16] MEDS ORDERED: SIMETHICONE 80 MG CHEW PO PRN (15:30)
[2022-06-16] MEDS ORDERED: ALBUTEROL/IPRATROPIUM 3 ML NEB NEB PRN (15:30)
[2022-06-16 17:19] VITALS: BP 100/71
[2022-06-16] MEDS: MIDODRINE HCL 5 MG TABLET PO SCH ×2 (17:41→21:29)
[2022-06-16] MEDS: DEXTROSE 5%/0.9% SOD CHL 1,000 ML IV SCH (17:41)
[2022-06-16 17:53] VITALS: BP 100/71
[2022-06-16] MEDS: HYDROCODONE/APAP 5MG-325MG TAB PO PRN (19:24)
[2022-06-16] MEDS ORDERED: TOBRADEX ST EYE5 ML OU (19:44)
[2022-06-16] MEDS ORDERED: SPIRONOLACTONE25 MG PO (19:44)
[2022-06-16] MEDS ORDERED: TYLENOL325 MG PO (19:44)
[2022-06-16] MEDS ORDERED: BENADRYL ALLERG25 MG PO (19:44)
[2022-06-16] MEDS ORDERED: XARELTO20 MG PO (19:44)
[2022-06-16] MEDS ORDERED: ONDANSETRON ODT4 MG PO (19:44)
[2022-06-16] MEDS ORDERED: TRIPLE ANTIBIOT28 GM TP (19:44)
[2022-06-16] MEDS ORDERED: CELEXA10 MG PO (19:44)
[2022-06-16] MEDS ORDERED: FEROSUL325 MG PO (19:44)
[2022-06-16] MEDS ORDERED: ARIMIDEX1 MG PO (19:44)
[2022-06-16] MEDS ORDERED: LASIX20 MG PO (19:44)
[2022-06-16 20:33] VITALS: BP 100/71
[2022-06-16] MEDS: FERROUS SULFATE 325 MG TAB PO SCH (21:28)
[2022-06-16] MEDS: ATORVASTATIN 40 MG TAB PO SCH (21:29)
[2022-06-16 21:55] VITALS: BP 90/57
[2022-06-17] VITALS (7 sets, daily range): BP systolic 95–116; BP diastolic 62–77
[2022-06-17] MEDS: DEXTROSE 5%/0.9% SOD CHL 1,000 ML IV SCH ×3 (01:30→21:06)
[2022-06-17] MEDS: ONDANSETRON HCL INJ 2MG/ML 2ML 2 MG/ML VIAL IV PRN (04:03)
[2022-06-17 06:05] LABS: BASOPHILS % 0.6 % (0.0-1.0); EOSINOPHILS # (AUTO) 0.2 (0.0-0.4); HEMATOCRIT 32.1 % (34.2-44.1); HEMOGLOBIN 9.9 g/dL (12.0-16.0); LYMPHOCYTES # (AUTO) 0.7 (1.0-3.2); LYMPHOCYTES % 10.3 % (18.0-39.1); MEAN CORPUSCULAR HEMOGLOBIN 29.1 pg (28-32); MEAN CORPUSCULAR HGB CONC 30.8 g/dL (31-35); MEAN CORPUSCULAR VOLUME 94.4 fL (81-99); MONOCYTES # (AUTO) 0.7 (0.2-0.8); MONOCYTES % 11.1 % (4.4-11.3); NEUTROPHILS # (AUTO) 4.9 (2.1-6.9); NEUTROPHILS % 74.8 % (38.7-80.0); PLATELET COUNT 239 x10e3/uL (140-360); RED CELL DISTRIBUTION WIDTH 15.1 % (11.7-14.4)
[2022-06-17] MEDS: MIDODRINE HCL 5 MG TABLET PO SCH ×3 (06:08→21:06)
[2022-06-17 06:33] LABS: ANION GAP 11.6 mmol/L (8-16); CALCIUM 8.5 mg/dL (8.4-10.2); CREATININE, SERUM 1.18 mg/dL (0.57-1.11); POTASSIUM 3.6 mmol/L (3.5-5.1)
[2022-06-17] MEDS: PANTOPRAZOLE SOD 40 MG TABEC PO SCH (08:23)
[2022-06-17] MEDS: ANASTROZOLE 1 MG TAB PO SCH (08:23)
[2022-06-17] MEDS: FERROUS SULFATE 325 MG TAB PO SCH ×2 (08:24→21:05)
[2022-06-17] MEDS: CITALOPRAM HYDROBROMIDE 20 MG TAB PO SCH (08:24)
[2022-06-17] MEDS: DIGOXIN 0.125 MG TAB PO SCH (09:00)
[2022-06-17] MEDS ORDERED: DIGOXIN 0.125 MG TAB PO SCH (09:00)
[2022-06-17] MEDS ORDERED: LORAZEPAM 1 MG TAB PO ONE (20:15)
[2022-06-17] MEDS: HYDROCODONE/APAP 5MG-325MG TAB PO PRN (21:05)
[2022-06-17] MEDS: ATORVASTATIN 40 MG TAB PO SCH (21:06)
[2022-06-18] MEDS: HYDROCODONE/APAP 5MG-325MG TAB PO PRN ×3 (03:01→20:47)
[2022-06-18 04:00] VITALS: BP 105/64
[2022-06-18] MEDS: MIDODRINE HCL 5 MG TABLET PO SCH ×3 (06:31→20:53)
[2022-06-18 08:00] VITALS: BP 110/54
[2022-06-18 08:08] VITALS: BP 110/54
[2022-06-18] MEDS: PANTOPRAZOLE SOD 40 MG TABEC PO SCH (09:15)
[2022-06-18] MEDS: ANASTROZOLE 1 MG TAB PO SCH (09:15)
[2022-06-18] MEDS: CITALOPRAM HYDROBROMIDE 20 MG TAB PO SCH (09:16)
[2022-06-18] MEDS: FERROUS SULFATE 325 MG TAB PO SCH ×2 (09:16→20:46)
[2022-06-18] MEDS: DEXTROSE 5%/0.9% SOD CHL 1,000 ML IV SCH ×2 (09:17→17:31)
[2022-06-18] MEDS: DIGOXIN 0.125 MG TAB PO SCH (09:17)
[2022-06-18 11:59] VITALS: BP 104/47
[2022-06-18 16:03] VITALS: BP 102/63
[2022-06-18] MEDS ORDERED: ENOXAPARIN SOD INJ 40 MG/0.4 ML SYR SC ONE (19:30)
[2022-06-18 20:00] VITALS: BP 99/58
[2022-06-18] MEDS: ATORVASTATIN 40 MG TAB PO SCH (20:53)
[2022-06-19] VITALS (8 sets, daily range): BP systolic 104–116; BP diastolic 50–72
[2022-06-19] MEDS: DEXTROSE 5%/0.9% SOD CHL 1,000 ML IV SCH ×2 (02:58→15:00)
[2022-06-19] MEDS: HYDROCODONE/APAP 5MG-325MG TAB PO PRN ×3 (04:28→19:56)
[2022-06-19] MEDS: MIDODRINE HCL 5 MG TABLET PO SCH ×3 (05:35→19:55)
[2022-06-19 05:51] LABS: HEMATOCRIT 29.9 % (34.2-44.1); HEMOGLOBIN 9.2 g/dL (12.0-16.0)
[2022-06-19] MEDS: DIGOXIN 0.125 MG TAB PO SCH (09:31)
[2022-06-19] MEDS: CITALOPRAM HYDROBROMIDE 20 MG TAB PO SCH (09:31)
[2022-06-19] MEDS: PANTOPRAZOLE SOD 40 MG TABEC PO SCH (09:32)
[2022-06-19] MEDS: FERROUS SULFATE 325 MG TAB PO SCH ×2 (09:32→19:55)
[2022-06-19] MEDS: ANASTROZOLE 1 MG TAB PO SCH (09:39)
[2022-06-19 13:01] LABS: INR 0.91; PROTHROMBIN TIME 13.1 seconds (11.9-14.5)
[2022-06-19] MEDS: ONDANSETRON HCL INJ 2MG/ML 2ML 2 MG/ML VIAL IV PRN ×3 (13:54→23:51)
[2022-06-19] MEDS: ATORVASTATIN 40 MG TAB PO SCH (19:55)
[2022-06-19] MEDS ORDERED: BISACODYL 10 MG SUPP PR ONE (20:45)
[2022-06-19] MEDS ORDERED: ENOXAPARIN SOD INJ 40 MG/0.4 ML SYR SC STA (21:04)
[2022-06-20] MEDS ORDERED: METOCLOPRAMIDE HCL 10 MG/2ML VIAL IV SCH
[2022-06-20 01:45] LABS: % IRON SATURATION 18 % (15-50); IRON 48 ug/dL (50-170); TOTAL IRON BINDING CAPACITY 265 ug/dL (261-478); TRANSFERRIN 189 mg/dL (180-382)
[2022-06-20 01:47] LABS: AMYLASE 27 U/L (25-125); LIPASE 25 U/L (8-78)
[2022-06-20] MEDS: HYDROCODONE/APAP 5MG-325MG TAB PO PRN ×3 (01:49→18:53)
[2022-06-20 04:00] VITALS: BP 111/91
[2022-06-20] MEDS: MIDODRINE HCL 5 MG TABLET PO SCH ×3 (05:19→21:08)
[2022-06-20] MEDS: DEXTROSE 5%/0.9% SOD CHL 1,000 ML IV SCH ×4 (05:25→21:09)
[2022-06-20 08:22] VITALS: BP 100/69
[2022-06-20] MEDS: SODIUM CHLORIDE 0.9% 1000ML 1,000 ML IV SCH ×3 (10:00→20:00)
[2022-06-20] MEDS: METOCLOPRAMIDE HCL 10 MG/2ML VIAL IV SCH ×4 (10:18→21:04)
[2022-06-20] MEDS: FERROUS SULFATE 325 MG TAB PO SCH ×2 (10:19→21:08)
[2022-06-20] MEDS: DIGOXIN 0.125 MG TAB PO SCH (10:19)
[2022-06-20] MEDS: CITALOPRAM HYDROBROMIDE 20 MG TAB PO SCH (10:19)
[2022-06-20] MEDS: ANASTROZOLE 1 MG TAB PO SCH (10:19)
[2022-06-20 10:43] VITALS: BP 100/69
[2022-06-20 12:42] VITALS: BP 99/74
[2022-06-20] MEDS ORDERED: MAGNESIUM HYDROXIDE 30 ML UDC PO ONE (13:00)
[2022-06-20] MEDS: ONDANSETRON HCL INJ 2MG/ML 2ML 2 MG/ML VIAL IV PRN (16:47)
[2022-06-20 17:07] VITALS: BP 101/82
[2022-06-20 19:35] VITALS: BP 125/71
[2022-06-20] MEDS: MELATONIN 5 MG TABLET PO PRN (21:08)
[2022-06-20] MEDS: ATORVASTATIN 40 MG TAB PO SCH (21:08)
[2022-06-21] VITALS (7 sets, daily range): BP systolic 99–116; BP diastolic 56–85
[2022-06-21] MEDS: HYDROCODONE/APAP 5MG-325MG TAB PO PRN ×4 (00:34→10:16)
[2022-06-21] MEDS ORDERED: HYDROXYZINE HCL 25 MG TAB PO PRN (00:45)
[2022-06-21] MEDS: DEXTROSE 5%/0.9% SOD CHL 1,000 ML IV SCH (00:50)
[2022-06-21] MEDS ORDERED: FOLIC ACID 5 MG/ML VIAL IV ONE (01:45)
[2022-06-21] MEDS ORDERED: CYANOCOBALAMIN INJ 1,000 MCG/ML VIAL IM ONE (01:45)
[2022-06-21] MEDS: MIDODRINE HCL 5 MG TABLET PO SCH ×3 (05:09→22:40)
[2022-06-21 05:58] LABS: BASOPHILS % 0.4 % (0.0-1.0); EOSINOPHILS # (AUTO) 0.1 (0.0-0.4); HEMATOCRIT 32.6 % (34.2-44.1); HEMOGLOBIN 10.1 g/dL (12.0-16.0); LYMPHOCYTES # (AUTO) 0.6 (1.0-3.2); LYMPHOCYTES % 8.6 % (18.0-39.1); MEAN CORPUSCULAR HEMOGLOBIN 29.8 pg (28-32); MEAN CORPUSCULAR VOLUME 96.2 fL (81-99); MONOCYTES # (AUTO) 0.7 (0.2-0.8); MONOCYTES % 9.8 % (4.4-11.3); NEUTROPHILS # (AUTO) 5.6 (2.1-6.9); NEUTROPHILS % 79.6 % (38.7-80.0); PLATELET COUNT 285 x10e3/uL (140-360); RED BLOOD COUNT 3.39 x10e6/uL (3.6-5.1); RED CELL DISTRIBUTION WIDTH 15.5 % (11.7-14.4)
[2022-06-21] MEDS: SODIUM CHLORIDE 0.9% 1000ML 1,000 ML IV SCH ×2 (06:00→10:15)
[2022-06-21 06:30] LABS: ANION GAP 12.4 mmol/L (8-16); CALCIUM 7.9 mg/dL (8.4-10.2); CREATININE, SERUM 1.02 mg/dL (0.57-1.11); POTASSIUM 3.4 mmol/L (3.5-5.1)
[2022-06-21 06:44] LABS: AMYLASE 17 U/L (25-125); LIPASE 10 U/L (8-78)
[2022-06-21] MEDS: DIGOXIN 0.125 MG TAB PO SCH (10:01)
[2022-06-21] MEDS: CYANOCOBALAMIN INJ 1,000 MCG/ML VIAL IM SCH (10:02)
[2022-06-21] MEDS: ANASTROZOLE 1 MG TAB PO SCH (10:02)
[2022-06-21] MEDS: METOCLOPRAMIDE HCL 10 MG/2ML VIAL IV SCH ×4 (10:02→22:38)
[2022-06-21] MEDS: CITALOPRAM HYDROBROMIDE 20 MG TAB PO SCH (10:03)
[2022-06-21] MEDS: IRON SUCROSE 100 MG in SODIUM CHLORIDE 0.9% 100 ML IV SCH (10:09)
[2022-06-21] MEDS: ONDANSETRON HCL INJ 2MG/ML 2ML 2 MG/ML VIAL IV PRN (10:15)
[2022-06-21] MEDS ORDERED: KETOROLAC TROMETHAMINE 30 MG/ML VIAL IV PRN (14:15)
[2022-06-21] MEDS ORDERED: SODIUM CHLORIDE 0.9% 1000ML 1,000 ML IV SCH (14:30)
[2022-06-21] MEDS ORDERED: KETOROLAC TROMETHAMINE 30 MG/ML VIAL ONE (14:54)
[2022-06-21] MEDS ORDERED: ENOXAPARIN SOD INJ 40 MG/0.4 ML SYR SC SCH (17:00)
[2022-06-21] MEDS: HYDROMORPHONE 1MG/1ML INJ IV PRN (20:48)
[2022-06-21] MEDS: ATORVASTATIN 40 MG TAB PO SCH (22:38)
[2022-06-22] VITALS: BP 110/76
[2022-06-22 00:55] LABS: CLARITY,URINE CLOUDY (CLEAR); COLOR,URINE AMBER (YELLOW); KETONES,URINE TRACE (NEGATIVE); LEUKOCYTE ESTERASE ,URINE SMALL (NEGATIVE); NITRITE,URINE NEGATIVE (NEGATIVE); PROTEIN,URINE DIPSTICK 2+ (NEGATIVE); URINE UROBILINOGEN 1 mg/dL (0.2 - 1)
[2022-06-22 00:57] LABS: BACTERIA,URINE MANY /HPF; EPITHELIAL CELLS,URINE FEW /LPF; RBC,URINE 21-50 /HPF (0-5); WBC,URINE (MAN) 21-50 /HPF (0-5)
[2022-06-22] MEDS: DEXTROSE 5%/0.9% SOD CHL 1,000 ML IV SCH ×3 (01:30→21:30)
[2022-06-22] MEDS: HYDROMORPHONE 1MG/1ML INJ IV PRN ×2 (01:49→06:03)
[2022-06-22 04:00] VITALS: BP 119/83
[2022-06-22] MEDS: MIDODRINE HCL 5 MG TABLET PO SCH ×3 (05:00→21:38)
[2022-06-22] MEDS: HYDROCODONE/APAP 5MG-325MG TAB PO PRN (05:00)
[2022-06-22 08:59] VITALS: BP 94/70
[2022-06-22] MEDS: ANASTROZOLE 1 MG TAB PO SCH (09:00)
[2022-06-22] MEDS: DIGOXIN 0.125 MG TAB PO SCH (09:00)
[2022-06-22] MEDS: CITALOPRAM HYDROBROMIDE 20 MG TAB PO SCH (09:00)
[2022-06-22] MEDS: METOCLOPRAMIDE HCL 10 MG/2ML VIAL IV SCH ×4 (09:30→21:37)
[2022-06-22] MEDS: CYANOCOBALAMIN INJ 1,000 MCG/ML VIAL IM SCH (09:30)
[2022-06-22] MEDS: IRON SUCROSE 100 MG in SODIUM CHLORIDE 0.9% 100 ML IV SCH (10:14)
[2022-06-22 12:28] VITALS: BP 100/76
[2022-06-22] MEDS ORDERED: ONDANSETRON HCL INJ 2MG/ML 2ML 2 MG/ML VIAL ONE (12:51)
[2022-06-22] MEDS ORDERED: PHENYLEPHRINE HCL 1% 10 MG/ML VIAL ONE (12:51)
[2022-06-22] MEDS ORDERED: PROPOFOL IV EMULSION 10 MG/ML 20 ML VIAL ONE (12:51)
[2022-06-22] MEDS ORDERED: LIDOCAINE HCL 2% LOCAL INJ 5 ML SDV VIAL INJ ONE (12:51)
[2022-06-22] MEDS ORDERED: DEXAMETHASONE SOD PHOS INJ 4 MG/ML SDV ONE (12:51)
[2022-06-22] MEDS ORDERED: EPHEDRINE SULFATE INJ 50 MG/ML VIAL ONE (12:51)
[2022-06-22] MEDS ORDERED: POVIDONE IODINE 0.05% 0.05 % ML PO ONE (12:51)
[2022-06-22] MEDS ORDERED: SEVOFLURANE INHAL SOLN 250 ML PEN BTL ONE (12:51)
[2022-06-22] MEDS ORDERED: FENTANYL CITRATE/PF 100MCG/2 ML INJ ONE (12:59)
[2022-06-22] MEDS ORDERED: ONDANSETRON HCL INJ 2MG/ML 2ML 2 MG/ML VIAL IV PRN (15:15)
[2022-06-22] MEDS ORDERED: NALOXONE HCL INJ 0.4 MG/ML AMP IV PRN (15:15)
[2022-06-22] MEDS: SODIUM CHLORIDE 0.9% 1000ML 1,000 ML IV SCH (15:15)
[2022-06-22] MEDS ORDERED: HYDROMORPHONE 0.2MG/ML-SOD CHL 30ML PCA SYRINGE IV PRN (15:15)
[2022-06-22] MEDS ORDERED: HYDROMORPHONE 0.2MG/ML-SOD CHL 30ML PCA SYRINGE IV ONE (15:57)
[2022-06-22 17:57] VITALS: BP 124/80
[2022-06-22] MEDS ORDERED: ACETAMINOPHEN 1000 MG/100 ML IV PRN (18:00)
[2022-06-22 20:00] VITALS: BP 106/73
[2022-06-22] MEDS: ATORVASTATIN 40 MG TAB PO SCH (21:39)
[2022-06-23] VITALS (10 sets, daily range): BP systolic 102–118; BP diastolic 61–89
[2022-06-23] MEDS: SODIUM CHLORIDE 0.9% 1000ML 1,000 ML IV SCH ×3 (01:45→21:34)
[2022-06-23] MEDS: MIDODRINE HCL 5 MG TABLET PO SCH ×3 (05:39→21:34)
[2022-06-23 06:21] LABS: HEMATOCRIT 36.5 % (34.2-44.1); HEMOGLOBIN 12.7 g/dL (12.0-16.0)
[2022-06-23] MEDS: RIVAROXABAN 10 MG TABLET PO SCH (07:25)
[2022-06-23] MEDS: METOCLOPRAMIDE HCL 10 MG/2ML VIAL IV SCH ×4 (07:25→21:33)
[2022-06-23] MEDS: DEXTROSE 5%/0.9% SOD CHL 1,000 ML IV SCH ×2 (07:30→17:30)
[2022-06-23] MEDS: CYANOCOBALAMIN INJ 1,000 MCG/ML VIAL IM SCH (08:54)
[2022-06-23] MEDS: DIGOXIN 0.125 MG TAB PO SCH (08:55)
[2022-06-23] MEDS: ANASTROZOLE 1 MG TAB PO SCH (08:55)
[2022-06-23] MEDS: CITALOPRAM HYDROBROMIDE 20 MG TAB PO SCH (08:55)
[2022-06-23] MEDS: IRON SUCROSE 100 MG in SODIUM CHLORIDE 0.9% 100 ML IV SCH (09:55)
[2022-06-23] MEDS: HYDROMORPHONE 1MG/1ML INJ IV PRN ×2 (12:55→17:50)
[2022-06-23] MEDS: ATORVASTATIN 40 MG TAB PO SCH (21:33)
[2022-06-24] VITALS (8 sets, daily range): BP systolic 100–128; BP diastolic 53–78
[2022-06-24] MEDS: DEXTROSE 5%/0.9% SOD CHL 1,000 ML IV SCH ×3 (03:30→23:30)
[2022-06-24] MEDS: MIDODRINE HCL 5 MG TABLET PO SCH ×3 (05:11→21:09)
[2022-06-24 06:12] LABS: BASOPHILS % 0.3 % (0.0-1.0); EOSINOPHILS # (AUTO) 0.3 (0.0-0.4); EOSINOPHILS % 3.1 % (0.0-6.0); HEMATOCRIT 29.3 % (34.2-44.1); LYMPHOCYTES # (AUTO) 0.7 (1.0-3.2); LYMPHOCYTES % 7.1 % (18.0-39.1); MEAN CORPUSCULAR HEMOGLOBIN 29.7 pg (28-32); MONOCYTES % 11.3 % (4.4-11.3); NEUTROPHILS # (AUTO) 7.1 (2.1-6.9); NEUTROPHILS % 77.1 % (38.7-80.0); PLATELET COUNT 284 x10e3/uL (140-360); RED BLOOD COUNT 2.96 x10e6/uL (3.6-5.1); RED CELL DISTRIBUTION WIDTH 15.9 % (11.7-14.4)
[2022-06-24 06:15] LABS: HEMOGLOBIN 8.8 g/dL (12.0-16.0)
[2022-06-24 06:17] LABS: ANION GAP 7.6 mmol/L (8-16); CALCIUM 8.2 mg/dL (8.4-10.2); CREATININE, SERUM 1.08 mg/dL (0.57-1.11); POTASSIUM 3.6 mmol/L (3.5-5.1)
[2022-06-24] MEDS: DIGOXIN 0.125 MG TAB PO SCH (09:31)
[2022-06-24] MEDS: METOCLOPRAMIDE HCL 10 MG/2ML VIAL IV SCH ×4 (09:31→21:09)
[2022-06-24] MEDS: RIVAROXABAN 10 MG TABLET PO SCH (09:31)
[2022-06-24] MEDS: CITALOPRAM HYDROBROMIDE 20 MG TAB PO SCH (09:31)
[2022-06-24] MEDS: ANASTROZOLE 1 MG TAB PO SCH (09:31)
[2022-06-24] MEDS: CYANOCOBALAMIN INJ 1,000 MCG/ML VIAL IM SCH (09:32)
[2022-06-24] MEDS: SODIUM CHLORIDE 0.9% 1000ML 1,000 ML IV SCH ×2 (09:34→17:18)
[2022-06-24] MEDS: IRON SUCROSE 100 MG in SODIUM CHLORIDE 0.9% 100 ML IV SCH (09:34)
[2022-06-24] MEDS ORDERED: ONDANSETRON HCL 4 MG ORAL DISINTEGRATING TAB PO PRN (11:30)
[2022-06-24] MEDS: MELATONIN 5 MG TABLET PO PRN (19:35)
[2022-06-24] MEDS: HYDROCODONE/APAP 5MG-325MG TAB PO PRN (19:35)
[2022-06-24] MEDS: ATORVASTATIN 40 MG TAB PO SCH (21:09)
[2022-06-25] VITALS (8 sets, daily range): BP systolic 94–111; BP diastolic 58–78
[2022-06-25] MEDS: SODIUM CHLORIDE 0.9% 1000ML 1,000 ML IV SCH ×2 (05:13→13:09)
[2022-06-25] MEDS: HYDROCODONE/APAP 5MG-325MG TAB PO PRN ×3 (05:15→21:30)
[2022-06-25] MEDS: MIDODRINE HCL 5 MG TABLET PO SCH ×3 (05:38→21:30)
[2022-06-25] MEDS: ANASTROZOLE 1 MG TAB PO SCH (08:45)
[2022-06-25] MEDS: IRON SUCROSE 100 MG in SODIUM CHLORIDE 0.9% 100 ML IV SCH (08:46)
[2022-06-25] MEDS: RIVAROXABAN 10 MG TABLET PO SCH (08:46)
[2022-06-25] MEDS: DIGOXIN 0.125 MG TAB PO SCH (08:47)
[2022-06-25] MEDS: CITALOPRAM HYDROBROMIDE 20 MG TAB PO SCH (08:47)
[2022-06-25] MEDS: METOCLOPRAMIDE HCL 10 MG/2ML VIAL IV SCH ×4 (08:47→21:31)
[2022-06-25] MEDS: CYANOCOBALAMIN INJ 1,000 MCG/ML VIAL IM SCH (08:48)
[2022-06-25] MEDS: DEXTROSE 5%/0.9% SOD CHL 1,000 ML IV SCH ×2 (09:30→19:30)
[2022-06-25] MEDS: ATORVASTATIN 40 MG TAB PO SCH (21:31)
[2022-06-26] VITALS: BP 111/72
[2022-06-26] MEDS: SODIUM CHLORIDE 0.9% 1000ML 1,000 ML IV SCH ×3 (00:07→20:52)
[2022-06-26] MEDS: HYDROCODONE/APAP 5MG-325MG TAB PO PRN ×2 (01:35→05:21)
[2022-06-26 04:00] VITALS: BP 110/67
[2022-06-26] MEDS: MIDODRINE HCL 5 MG TABLET PO SCH ×3 (05:21→20:53)
[2022-06-26] MEDS: DEXTROSE 5%/0.9% SOD CHL 1,000 ML IV SCH ×2 (05:30→15:16)
[2022-06-26 05:40] LABS: BASOPHILS % 0.4 % (0.0-1.0); EOSINOPHILS # (AUTO) 0.3 (0.0-0.4); EOSINOPHILS % 4.2 % (0.0-6.0); HEMATOCRIT 25.5 % (34.2-44.1); HEMOGLOBIN 7.8 g/dL (12.0-16.0); LYMPHOCYTES # (AUTO) 0.6 (1.0-3.2); LYMPHOCYTES % 8.6 % (18.0-39.1); MEAN CORPUSCULAR HEMOGLOBIN 29.5 pg (28-32); MEAN CORPUSCULAR HGB CONC 30.6 g/dL (31-35); MEAN CORPUSCULAR VOLUME 96.6 fL (81-99); MONOCYTES # (AUTO) 0.7 (0.2-0.8); MONOCYTES % 9.7 % (4.4-11.3); NEUTROPHILS # (AUTO) 5.2 (2.1-6.9); NEUTROPHILS % 75.8 % (38.7-80.0); PLATELET COUNT 312 x10e3/uL (140-360); RED BLOOD COUNT 2.64 x10e6/uL (3.6-5.1); RED CELL DISTRIBUTION WIDTH 16.1 % (11.7-14.4)
[2022-06-26 06:00] LABS: ANION GAP 7.2 mmol/L (8-16); CREATININE, SERUM 0.83 mg/dL (0.57-1.11); POTASSIUM 3.2 mmol/L (3.5-5.1)
[2022-06-26] MEDS: RIVAROXABAN 10 MG TABLET PO SCH (08:31)
[2022-06-26] MEDS: CITALOPRAM HYDROBROMIDE 20 MG TAB PO SCH (08:31)
[2022-06-26] MEDS: ANASTROZOLE 1 MG TAB PO SCH (08:31)
[2022-06-26] MEDS: CYANOCOBALAMIN INJ 1,000 MCG/ML VIAL IM SCH (08:32)
[2022-06-26] MEDS: DIGOXIN 0.125 MG TAB PO SCH (08:32)
[2022-06-26] MEDS: METOCLOPRAMIDE HCL 10 MG/2ML VIAL IV SCH ×4 (08:32→20:53)
[2022-06-26] MEDS: PANTOPRAZOLE SOD 40 MG TABEC PO SCH (08:32)
[2022-06-26 09:42] VITALS: BP 110/67
[2022-06-26 12:21] VITALS: BP 96/83
[2022-06-26 16:06] VITALS: BP 105/58
[2022-06-26 20:00] VITALS: BP 99/77
[2022-06-26] MEDS: HYDROMORPHONE 1MG/1ML INJ IV PRN (20:52)
[2022-06-26] MEDS: ATORVASTATIN 40 MG TAB PO SCH (20:53)
[2022-06-26] MEDS ORDERED: BISACODYL 5 MG TAB EC PO ONE (23:30)
[2022-06-27] VITALS (8 sets, daily range): BP systolic 95–112; BP diastolic 51–75
[2022-06-27] MEDS: DEXTROSE 5%/0.9% SOD CHL 1,000 ML IV SCH (01:30)
[2022-06-27] MEDS: HYDROCODONE/APAP 5MG-325MG TAB PO PRN ×2 (03:37→21:49)
[2022-06-27] MEDS: SODIUM CHLORIDE 0.9% 1000ML 1,000 ML IV SCH ×2 (05:29→17:21)
[2022-06-27 05:36] LABS: BASOPHILS % 0.4 % (0.0-1.0); EOSINOPHILS # (AUTO) 0.3 (0.0-0.4); EOSINOPHILS % 3.7 % (0.0-6.0); HEMATOCRIT 27.5 % (34.2-44.1); HEMOGLOBIN 8.3 g/dL (12.0-16.0); LYMPHOCYTES # (AUTO) 0.6 (1.0-3.2); LYMPHOCYTES % 6.8 % (18.0-39.1); MEAN CORPUSCULAR HEMOGLOBIN 29.4 pg (28-32); MEAN CORPUSCULAR HGB CONC 30.2 g/dL (31-35); MEAN CORPUSCULAR VOLUME 97.5 fL (81-99); MONOCYTES # (AUTO) 0.7 (0.2-0.8); MONOCYTES % 8.6 % (4.4-11.3); NEUTROPHILS # (AUTO) 6.7 (2.1-6.9); NEUTROPHILS % 79.4 % (38.7-80.0); PLATELET COUNT 330 x10e3/uL (140-360); RED BLOOD COUNT 2.82 x10e6/uL (3.6-5.1); RED CELL DISTRIBUTION WIDTH 16.3 % (11.7-14.4)
[2022-06-27 05:51] LABS: ANION GAP 10.6 mmol/L (8-16); CALCIUM 8.3 mg/dL (8.4-10.2); CREATININE, SERUM 0.79 mg/dL (0.57-1.11); POTASSIUM 3.6 mmol/L (3.5-5.1)
[2022-06-27] MEDS: MIDODRINE HCL 5 MG TABLET PO SCH ×3 (06:45→21:46)
[2022-06-27] MEDS: METOCLOPRAMIDE HCL 10 MG/2ML VIAL IV SCH ×4 (09:01→21:46)
[2022-06-27] MEDS: CITALOPRAM HYDROBROMIDE 20 MG TAB PO SCH (09:02)
[2022-06-27] MEDS: DIGOXIN 0.125 MG TAB PO SCH (09:02)
[2022-06-27] MEDS: CYANOCOBALAMIN INJ 1,000 MCG/ML VIAL IM SCH (09:02)
[2022-06-27] MEDS: ANASTROZOLE 1 MG TAB PO SCH (09:02)
[2022-06-27] MEDS: PANTOPRAZOLE SOD 40 MG TABEC PO SCH (09:02)
[2022-06-27] MEDS: RIVAROXABAN 10 MG TABLET PO SCH (09:03)
[2022-06-27] MEDS: ATORVASTATIN 40 MG TAB PO SCH (21:47)
[2022-06-27] MEDS ORDERED: BISACODYL 5 MG TAB EC PO ONE (23:00)
[2022-06-28] VITALS (7 sets, daily range): BP systolic 99–119; BP diastolic 55–80
[2022-06-28] MEDS: SODIUM CHLORIDE 0.9% 1000ML 1,000 ML IV SCH ×2 (01:08→11:05)
[2022-06-28] MEDS: MIDODRINE HCL 5 MG TABLET PO SCH ×2 (05:34→14:07)
[2022-06-28] MEDS: HYDROCODONE/APAP 5MG-325MG TAB PO PRN ×2 (05:36→14:52)
[2022-06-28] MEDS: PANTOPRAZOLE SOD 40 MG TABEC PO SCH (08:41)
[2022-06-28] MEDS: ANASTROZOLE 1 MG TAB PO SCH (08:41)
[2022-06-28] MEDS: DIGOXIN 0.125 MG TAB PO SCH (08:41)
[2022-06-28] MEDS: CYANOCOBALAMIN INJ 1,000 MCG/ML VIAL IM SCH (08:42)
[2022-06-28] MEDS: CITALOPRAM HYDROBROMIDE 20 MG TAB PO SCH (08:42)
[2022-06-28] MEDS: METOCLOPRAMIDE HCL 10 MG/2ML VIAL IV SCH ×2 (08:42→11:51)
[2022-06-28] MEDS: RIVAROXABAN 10 MG TABLET PO SCH (08:43)
[2022-06-28] MEDS ORDERED: HEPARIN 500 UNITS/5ML MDV INJ ONE (14:15)
== END 2022-06-28 15:45 | DRG 481 ==
LOC: ER 11:39 → ERHOLD 14:37 → MED/SURG2 17:19 → MED/SURG 06-25 18:10 → MED/SURG2 06-26 05:35
PROVIDERS: ADMIT Internal Medicine; ATTEND Internal Medicine
PROC: 0QH736Z Insertion of Intramedullary Internal Fixation Device into Left Upper Femur, Percutaneous Approach (ICD-10-PCS; principal; 2022-06-22 13:00)
DX: S72.112A Displaced fracture of greater trochanter of left femur, initial encounter for closed fracture (principal); I48.20 Chronic atrial fibrillation, unspecified; W01.198A Fall on same level from slipping, tripping and stumbling with subsequent striking against other object, initial encounter; Y93.01 Activity, walking, marching and hiking; E11.9 Type 2 diabetes mellitus without complications; J44.9 Chronic obstructive pulmonary disease, unspecified; Z79.01 Long term (current) use of anticoagulants; Z85.3 Personal history of malignant neoplasm of breast; Z88.7 Allergy status to serum and vaccine; E66.01 Morbid (severe) obesity due to excess calories; Z68.39 Body mass index [BMI] 39.0-39.9, adult; Z87.891 Personal history of nicotine dependence; D64.9 Anemia, unspecified; E11.69 Type 2 diabetes mellitus with other specified complication; E78.5 Hyperlipidemia, unspecified; R10.9 Unspecified abdominal pain; Z20.822 Contact with and (suspected) exposure to COVID-19; I10 Essential (primary) hypertension; F32.A Depression, unspecified
CPT/HCPCS: 0223U; 36415; 70450; 71045; 72192; 74018; 74019; 76000; 80048; 80053; 81001; 82150; 82607; 82746; 82948; 83540; 83690; 84466; 85014; 85018; 85025; 85045; 85610; 86850; 86900; 93005; 93970; 94640; 94799; 96360; 96361; 97139; 99251; 99284; C1713; J0690; J1100; J1170; J1650; J1756; J1885; J2001; J2370; J2405; J2765; J3010; J3410; J3420; J7030; J7042; J7050; Q0162

== ENCOUNTER 2022-07-10 13:14 | Inpatient (IN) | payer MEDICARE ==
[~2022-07-10] VITALS: Ht 170.2 cm; Wt 114.8 kg
[~2022-07-10 13:14] MED LIST changes: +ARIMIDEX1 MG PO; +BENADRYL ALLERG25 MG PO; +CELEXA10 MG PO; +FEROSUL325 MG PO; +LASIX20 MG PO; +ONDANSETRON ODT4 MG PO; +SPIRONOLACTONE25 MG PO; +TOBRADEX ST EYE5 ML OU; +TRIPLE ANTIBIOT28 GM TP; +TYLENOL325 MG PO; +XARELTO20 MG PO
[2022-07-10] MEDS ORDERED: SODIUM CHLORIDE 0.9% 1000ML 1,000 ML IV STA (13:36)
[2022-07-10] MEDS ORDERED: ACETAMINOPHEN 325 MG TAB PO NR (13:45)
[2022-07-10 13:46] LABS: BASOPHILS % 0.3 % (0.0-1.0); EOSINOPHILS # (AUTO) 0.1 (0.0-0.4); EOSINOPHILS % 0.9 % (0.0-6.0); HEMATOCRIT 28.7 % (34.2-44.1); HEMOGLOBIN 8.8 g/dL (12.0-16.0); LYMPHOCYTES # (AUTO) 0.5 (1.0-3.2); LYMPHOCYTES % 6.4 % (18.0-39.1); MEAN CORPUSCULAR HEMOGLOBIN 29.1 pg (28-32); MEAN CORPUSCULAR HGB CONC 30.7 g/dL (31-35); MONOCYTES # (AUTO) 0.6 (0.2-0.8); MONOCYTES % 8.2 % (4.4-11.3); NEUTROPHILS # (AUTO) 6.5 (2.1-6.9); NEUTROPHILS % 83.9 % (38.7-80.0); PLATELET COUNT 356 x10e3/uL (140-360); RED BLOOD COUNT 3.02 x10e6/uL (3.6-5.1); RED CELL DISTRIBUTION WIDTH 16.3 % (11.7-14.4)
[2022-07-10 13:58] LABS: INR 1.7; PROTHROMBIN TIME 21.3 seconds (11.9-14.5)
[2022-07-10 13:59] LABS: PARTIAL THROMBOPLASTIN TIME 46.9 seconds (23.8-35.5)
[2022-07-10 14:06] LABS: ALBUMIN 2.4 g/dL (3.5-5.0); ALBUMIN/GLOBULIN RATIO 0.6 (0.8-2.0); ANION GAP 16.4 mmol/L (8-16); CALCIUM 8.7 mg/dL (8.4-10.2); CREATININE, SERUM 1.01 mg/dL (0.57-1.11); POTASSIUM 4.4 mmol/L (3.5-5.1)
[2022-07-10 14:12] LABS: CREATINE KINASE MB 0.7 ng/mL (0-5.0)
[2022-07-10 14:15] LABS: AMPHETAMINES SCREEN,URINE NEGATIVE (NEGATIVE); BENZODIAZEPINES SCREEN,URINE NEGATIVE (NEGATIVE); PHENCYCLIDINE SCREEN,URINE NEGATIVE (NEGATIVE)
[2022-07-10 14:20] LABS: CLARITY,URINE SL CLOUDY (CLEAR); COLOR,URINE YELLOW (YELLOW); LEUKOCYTE ESTERASE ,URINE 1+ (NEGATIVE)
[2022-07-10 14:21] LABS: KETONES,URINE NEGATIVE (NEGATIVE); NITRITE,URINE POSITIVE (NEGATIVE); PROTEIN,URINE DIPSTICK NEGATIVE (NEGATIVE); URINE UROBILINOGEN 4 mg/dL (0.2 - 1)
[2022-07-10 14:25] LABS: WBC,URINE (MAN) >50 /HPF (0-5)
[2022-07-10 14:28] LABS: BACTERIA,URINE MANY /HPF; EPITHELIAL CELLS,URINE FEW /LPF; RENAL EPITHELIAL CELLS,URINE FEW; TRANSITIONAL EPI CELLS,URINE FEW
[2022-07-10] MEDS ORDERED: Vancomycin IV 1 GM in SODIUM CHLORIDE 0.9% 250ML 250 ML IV ONE (14:30)
[2022-07-10 14:37] LABS: SALICYLATE < 5.0 mg/dL (0-30)
[2022-07-10] MEDS ORDERED: DEXTROSE 50% SYRINGE 50 ML IV PRN (16:00)
[2022-07-10] MEDS: INSULIN LISPRO 100 UNIT/1 ML 3ML VIAL SQ SCH ×2 (16:30→21:00)
[2022-07-10] MEDS: SODIUM CHLORIDE 0.9% 1000ML 1,000 ML IV SCH ×2 (16:46→17:45)
[2022-07-10] MEDS ORDERED: DIGOXIN INJ 0.25 MG/ML 2 ML AMP IV NR (17:00)
[2022-07-10 17:49] VITALS: BP 104/50
[2022-07-10 17:50] VITALS: BP 104/50
[2022-07-10 18:01] VITALS: BP 104/50
[2022-07-10 20:00] VITALS: BP 108/65
[2022-07-10 21:00] VITALS: BP 108/65
[2022-07-11] VITALS (10 sets, daily range): BP systolic 77–99; BP diastolic 45–66
[2022-07-11] MEDS: ONDANSETRON HCL INJ 2MG/ML 2ML 2 MG/ML VIAL IV PRN (02:40)
[2022-07-11 05:16] LABS: BASOPHILS % 0.2 % (0.0-1.0); EOSINOPHILS # (AUTO) 0.1 (0.0-0.4); EOSINOPHILS % 1.1 % (0.0-6.0); HEMOGLOBIN 7.6 g/dL (12.0-16.0); LYMPHOCYTES # (AUTO) 0.5 (1.0-3.2); LYMPHOCYTES % 8.9 % (18.0-39.1); MEAN CORPUSCULAR HEMOGLOBIN 29.1 pg (28-32); MEAN CORPUSCULAR HGB CONC 30.4 g/dL (31-35); MEAN CORPUSCULAR VOLUME 95.8 fL (81-99); MONOCYTES # (AUTO) 0.5 (0.2-0.8); MONOCYTES % 8.3 % (4.4-11.3); NEUTROPHILS # (AUTO) 4.5 (2.1-6.9); NEUTROPHILS % 81.1 % (38.7-80.0); PLATELET COUNT 313 x10e3/uL (140-360); RED BLOOD COUNT 2.61 x10e6/uL (3.6-5.1); RED CELL DISTRIBUTION WIDTH 16.3 % (11.7-14.4)
[2022-07-11 05:36] LABS: ALBUMIN 1.9 g/dL (3.5-5.0); ALBUMIN/GLOBULIN RATIO 0.6 (0.8-2.0); ANION GAP 15.7 mmol/L (8-16); CALCIUM 7.8 mg/dL (8.4-10.2); CREATININE, SERUM 1.16 mg/dL (0.57-1.11); POTASSIUM 3.7 mmol/L (3.5-5.1)
[2022-07-11 06:05] LABS: CREATINE KINASE MB 0.8 ng/mL (0-5.0)
[2022-07-11] MEDS ORDERED: SODIUM CHLORIDE 0.9% 1000ML 1,000 ML ONE (06:36)
[2022-07-11] MEDS ORDERED: SODIUM CHLORIDE 0.9% 1000ML 500 ML IV ONE (06:45)
[2022-07-11] MEDS ORDERED: SODIUM CHLORIDE 0.9% 1000ML 1,000 ML IV ONE (07:15)
[2022-07-11] MEDS: INSULIN LISPRO 100 UNIT/1 ML 3ML VIAL SQ SCH ×4 (07:30→21:00)
[2022-07-11] MEDS ORDERED: DIPHENHYDRAMINE HCL 25 MG CAP PO PRN (10:45)
[2022-07-11] MEDS ORDERED: TOBRAMYCIN/DEXAMETHASONE(OPTH) 5 ML BTL OU PRN (10:45)
[2022-07-11] MEDS: MIDODRINE 2.5 MG TAB PO SCH ×3 (11:02→17:02)
[2022-07-11] MEDS: FERROUS SULFATE 325 MG TAB PO SCH ×2 (11:05→23:10)
[2022-07-11] MEDS: SODIUM CHLORIDE 0.9% 1000ML 1,000 ML IV SCH ×3 (12:22→23:10)
[2022-07-11] MEDS ORDERED: LIDOCAINE HCL 1% LOCAL INJ 20 ML VIAL ONE (16:44)
[2022-07-11] MEDS ORDERED: SODIUM CHLORIDE 0.9% 500ML 0 ML ONE (16:45)
[2022-07-11] MEDS ORDERED: IOPAMIDOL 300MG/ML 100 ML INFUS..BTL IV ONE (19:48)
[2022-07-11] MEDS ORDERED: RIVAROXABAN 20 MG TABLET PO SCH (21:00)
[2022-07-11] MEDS: PANTOPRAZOLE SOD 40 MG TABEC PO SCH (21:02)
[2022-07-12] VITALS (10 sets, daily range): BP systolic 85–112; BP diastolic 41–62
[2022-07-12] MEDS: ACETAMINOPHEN 325 MG TAB PO PRN (04:01)
[2022-07-12 05:42] LABS: BASOPHILS % 0.1 % (0.0-1.0); HEMATOCRIT 26.1 % (34.2-44.1); LYMPHOCYTES # (AUTO) 0.3 (1.0-3.2); LYMPHOCYTES % 2.3 % (18.0-39.1); MEAN CORPUSCULAR HEMOGLOBIN 29.4 pg (28-32); MEAN CORPUSCULAR HGB CONC 30.7 g/dL (31-35); MONOCYTES # (AUTO) 0.8 (0.2-0.8); MONOCYTES % 7.1 % (4.4-11.3); NEUTROPHILS # (AUTO) 10.2 (2.1-6.9); PLATELET COUNT 311 x10e3/uL (140-360); RED BLOOD COUNT 2.72 x10e6/uL (3.6-5.1); RED CELL DISTRIBUTION WIDTH 16.4 % (11.7-14.4)
[2022-07-12 06:13] LABS: ANION GAP 15.4 mmol/L (8-16); CALCIUM 7.8 mg/dL (8.4-10.2); CREATININE, SERUM 1.15 mg/dL (0.57-1.11); POTASSIUM 3.4 mmol/L (3.5-5.1)
[2022-07-12] MEDS: FERROUS SULFATE 325 MG TAB PO SCH (08:42)
[2022-07-12] MEDS: MIDODRINE 2.5 MG TAB PO SCH ×3 (08:42→16:56)
[2022-07-12] MEDS: DIGOXIN 0.125 MG TAB PO SCH (08:43)
[2022-07-12] MEDS: CITALOPRAM HYDROBROMIDE 20 MG TAB PO SCH (08:43)
[2022-07-12] MEDS: ANASTROZOLE 1 MG TAB PO SCH (08:43)
[2022-07-12] MEDS ORDERED: FUROSEMIDE INJ 10 MG/ML 2 ML VIAL IV PRN (08:45)
[2022-07-12] MEDS ORDERED: ACETAMINOPHEN 325 MG TAB PO STA (08:45)
[2022-07-12] MEDS ORDERED: SODIUM CHLORIDE 0.9% 250ML 250 ML IV ONE (08:45)
[2022-07-12] MEDS: INSULIN LISPRO 100 UNIT/1 ML 3ML VIAL SQ SCH ×4 (08:54→21:34)
[2022-07-12] MEDS ORDERED: POTASSIUM CHLORIDE 10MEQ EA PO ONE ×2 (09:00→15:15)
[2022-07-12] MEDS ORDERED: SODIUM CHLORIDE 0.9% 250ML 250 ML ONE (13:38)
[2022-07-12] MEDS: SODIUM CHLORIDE 0.9% 1000ML 1,000 ML IV SCH ×2 (14:57→23:55)
[2022-07-12] MEDS: BALSAM PERU/CASTOR OIL 60 GM OINT...G. TP SCH (17:00)
[2022-07-12] MEDS: PANTOPRAZOLE SOD 40 MG TABEC PO SCH (21:32)
[2022-07-12 23:57] LABS: BASOPHILS % 0.1 % (0.0-1.0); EOSINOPHILS % 0.4 % (0.0-6.0); HEMATOCRIT 27.2 % (34.2-44.1); HEMOGLOBIN 8.4 g/dL (12.0-16.0); LYMPHOCYTES # (AUTO) 0.5 (1.0-3.2); MEAN CORPUSCULAR HEMOGLOBIN 29.3 pg (28-32); MEAN CORPUSCULAR HGB CONC 30.9 g/dL (31-35); MEAN CORPUSCULAR VOLUME 94.8 fL (81-99); MONOCYTES # (AUTO) 0.7 (0.2-0.8); MONOCYTES % 9.2 % (4.4-11.3); NEUTROPHILS # (AUTO) 6.3 (2.1-6.9); NEUTROPHILS % 83.9 % (38.7-80.0); PLATELET COUNT 227 x10e3/uL (140-360); RED BLOOD COUNT 2.87 x10e6/uL (3.6-5.1); RED CELL DISTRIBUTION WIDTH 16.3 % (11.7-14.4)
[2022-07-13] VITALS (9 sets, daily range): BP systolic 86–102; BP diastolic 52–76
[2022-07-13] MEDS: ACETAMINOPHEN 325 MG TAB PO PRN ×2 (01:00→18:21)
[2022-07-13 05:41] LABS: BASOPHILS % 0.1 % (0.0-1.0); EOSINOPHILS # (AUTO) 0.1 (0.0-0.4); EOSINOPHILS % 0.8 % (0.0-6.0); HEMATOCRIT 26.3 % (34.2-44.1); HEMOGLOBIN 8.2 g/dL (12.0-16.0); LYMPHOCYTES # (AUTO) 0.5 (1.0-3.2); LYMPHOCYTES % 6.5 % (18.0-39.1); MEAN CORPUSCULAR HEMOGLOBIN 29.2 pg (28-32); MEAN CORPUSCULAR HGB CONC 31.2 g/dL (31-35); MEAN CORPUSCULAR VOLUME 93.6 fL (81-99); MONOCYTES # (AUTO) 0.7 (0.2-0.8); MONOCYTES % 9.6 % (4.4-11.3); NEUTROPHILS # (AUTO) 6.1 (2.1-6.9); NEUTROPHILS % 82.7 % (38.7-80.0); PLATELET COUNT 225 x10e3/uL (140-360); RED BLOOD COUNT 2.81 x10e6/uL (3.6-5.1); RED CELL DISTRIBUTION WIDTH 16.2 % (11.7-14.4)
[2022-07-13 06:36] LABS: ANION GAP 13.2 mmol/L (8-16); CALCIUM 7.8 mg/dL (8.4-10.2); CREATININE, SERUM 0.99 mg/dL (0.57-1.11); POTASSIUM 3.2 mmol/L (3.5-5.1)
[2022-07-13] MEDS: ONDANSETRON HCL INJ 2MG/ML 2ML 2 MG/ML VIAL IV PRN ×2 (06:41→12:52)
[2022-07-13 07:07] LABS: MAGNESIUM 1.7 MG/DL (1.3-2.1); PHOSPHORUS 2.6 MG/DL (2.3-4.7)
[2022-07-13] MEDS: INSULIN LISPRO 100 UNIT/1 ML 3ML VIAL SQ SCH ×4 (07:30→21:00)
[2022-07-13] MEDS: ANASTROZOLE 1 MG TAB PO SCH (09:08)
[2022-07-13] MEDS: DIGOXIN 0.125 MG TAB PO SCH (09:08)
[2022-07-13] MEDS: MIDODRINE 2.5 MG TAB PO SCH ×3 (09:08→16:36)
[2022-07-13] MEDS: SODIUM CHLORIDE 0.9% 1000ML 1,000 ML IV SCH (09:09)
[2022-07-13] MEDS: CITALOPRAM HYDROBROMIDE 20 MG TAB PO SCH (09:09)
[2022-07-13] MEDS: DOXYCYCLINE HYCLATE TABLET 100 MG TAB PO SCH ×2 (09:50→16:36)
[2022-07-13] MEDS: BALSAM PERU/CASTOR OIL 60 GM OINT...G. TP SCH (09:50)
[2022-07-13] MEDS ORDERED: POTASSIUM CHLORIDE 10MEQ EA PO ONE (10:00)
[2022-07-13] MEDS ORDERED: SODIUM CHLORIDE 0.9% 0 ML ONE (13:24)
[2022-07-13] MEDS ORDERED: SODIUM CHLORIDE 0.9% 100 ML ONE (14:14)
[2022-07-13] MEDS: RIVAROXABAN 10 MG TABLET PO SCH (16:36)
[2022-07-13] MEDS ORDERED: HYDROCODONE/APAP 10MG-325MG TAB PO PRN (19:15)
[2022-07-13] MEDS: PANTOPRAZOLE SOD 40 MG TABEC PO SCH (21:53)
[2022-07-13] MEDS: HYDROCODONE/APAP 10MG-325MG TAB PO PRN (21:55)
[2022-07-14] VITALS (8 sets, daily range): BP systolic 77–93; BP diastolic 48–73
[2022-07-14 06:24] LABS: MAGNESIUM 1.6 MG/DL (1.3-2.1); PHOSPHORUS 2.8 MG/DL (2.3-4.7)
[2022-07-14] MEDS: HYDROCODONE/APAP 10MG-325MG TAB PO PRN ×2 (06:33→14:09)
[2022-07-14 07:03] LABS: ANION GAP 15.8 mmol/L (8-16); CALCIUM 8.1 mg/dL (8.4-10.2); CREATININE, SERUM 0.96 mg/dL (0.57-1.11); POTASSIUM 3.8 mmol/L (3.5-5.1)
[2022-07-14] MEDS: INSULIN LISPRO 100 UNIT/1 ML 3ML VIAL SQ SCH ×4 (09:35→21:00)
[2022-07-14] MEDS: ANASTROZOLE 1 MG TAB PO SCH (09:36)
[2022-07-14] MEDS: CITALOPRAM HYDROBROMIDE 20 MG TAB PO SCH (09:36)
[2022-07-14] MEDS: DOXYCYCLINE HYCLATE TABLET 100 MG TAB PO SCH ×2 (09:36→17:26)
[2022-07-14] MEDS: DIGOXIN 0.125 MG TAB PO SCH (09:36)
[2022-07-14] MEDS: MIDODRINE 2.5 MG TAB PO SCH ×3 (09:36→17:25)
[2022-07-14] MEDS: BALSAM PERU/CASTOR OIL 60 GM OINT...G. TP SCH (11:50)
[2022-07-14] MEDS: HYDROCORTISONE 2.5% PR CRM 1 OZ TUBE PR SCH ×3 (11:51→22:23)
[2022-07-14] MEDS: RIVAROXABAN 10 MG TABLET PO SCH (17:26)
[2022-07-14] MEDS: PANTOPRAZOLE SOD 40 MG TABEC PO SCH (22:22)
[2022-07-14] MEDS ORDERED: SODIUM CHLORIDE 0.9% 100 ML ONE (22:28)
[2022-07-15] VITALS (8 sets, daily range): BP systolic 87–105; BP diastolic 47–69
[2022-07-15] MEDS: INSULIN LISPRO 100 UNIT/1 ML 3ML VIAL SQ SCH ×4 (07:30→21:00)
[2022-07-15] MEDS: DOXYCYCLINE HYCLATE TABLET 100 MG TAB PO SCH ×2 (09:22→16:24)
[2022-07-15] MEDS: MIDODRINE 2.5 MG TAB PO SCH ×3 (09:22→16:24)
[2022-07-15] MEDS: ANASTROZOLE 1 MG TAB PO SCH (09:23)
[2022-07-15] MEDS: DIGOXIN 0.125 MG TAB PO SCH (09:23)
[2022-07-15] MEDS: BALSAM PERU/CASTOR OIL 60 GM OINT...G. TP SCH (09:23)
[2022-07-15] MEDS: CITALOPRAM HYDROBROMIDE 20 MG TAB PO SCH (09:23)
[2022-07-15] MEDS: HYDROCORTISONE 2.5% PR CRM 1 OZ TUBE PR SCH ×3 (09:24→21:07)
[2022-07-15] MEDS: HYDROCODONE/APAP 10MG-325MG TAB PO PRN (11:59)
[2022-07-15] MEDS ORDERED: FUROSEMIDE INJ 10 MG/ML 2 ML VIAL IV ONE (14:15)
[2022-07-15] MEDS ORDERED: IOPAMIDOL 370 MG/ML 100 ML INFUS..BTL INJ ONE (15:58)
[2022-07-15] MEDS: RIVAROXABAN 10 MG TABLET PO SCH (16:24)
[2022-07-15] MEDS: PANTOPRAZOLE SOD 40 MG TABEC PO SCH (21:06)
[2022-07-16] VITALS (9 sets, daily range): BP systolic 89–106; BP diastolic 48–60
[2022-07-16] MEDS: HYDROCODONE/APAP 10MG-325MG TAB PO PRN (01:54)
[2022-07-16 04:58] LABS: BASOPHILS % 0.1 % (0.0-1.0); EOSINOPHILS # (AUTO) 0.2 (0.0-0.4); HEMATOCRIT 23.5 % (34.2-44.1); HEMOGLOBIN 7.3 g/dL (12.0-16.0); LYMPHOCYTES # (AUTO) 0.6 (1.0-3.2); LYMPHOCYTES % 7.6 % (18.0-39.1); MEAN CORPUSCULAR HEMOGLOBIN 29.2 pg (28-32); MEAN CORPUSCULAR HGB CONC 31.1 g/dL (31-35); MONOCYTES # (AUTO) 0.8 (0.2-0.8); MONOCYTES % 10.3 % (4.4-11.3); NEUTROPHILS # (AUTO) 5.9 (2.1-6.9); NEUTROPHILS % 78.3 % (38.7-80.0); PLATELET COUNT 280 x10e3/uL (140-360); RED CELL DISTRIBUTION WIDTH 15.9 % (11.7-14.4)
[2022-07-16 05:22] LABS: ANION GAP 13.5 mmol/L (8-16); CALCIUM 8.3 mg/dL (8.4-10.2); CREATININE, SERUM 0.9 mg/dL (0.57-1.11); POTASSIUM 3.5 mmol/L (3.5-5.1)
[2022-07-16] MEDS: INSULIN LISPRO 100 UNIT/1 ML 3ML VIAL SQ SCH ×4 (07:30→19:55)
[2022-07-16] MEDS: MIDODRINE 2.5 MG TAB PO SCH ×3 (08:31→16:20)
[2022-07-16] MEDS: DIGOXIN 0.125 MG TAB PO SCH (08:31)
[2022-07-16] MEDS: DOXYCYCLINE HYCLATE TABLET 100 MG TAB PO SCH ×2 (08:32→16:20)
[2022-07-16] MEDS: ANASTROZOLE 1 MG TAB PO SCH (08:32)
[2022-07-16] MEDS: CITALOPRAM HYDROBROMIDE 20 MG TAB PO SCH (08:32)
[2022-07-16] MEDS: HYDROCORTISONE 2.5% PR CRM 1 OZ TUBE PR SCH ×3 (09:00→21:32)
[2022-07-16] MEDS: BALSAM PERU/CASTOR OIL 60 GM OINT...G. TP SCH (09:00)
[2022-07-16] MEDS ORDERED: SODIUM CHLORIDE 0.9% 250ML 250 ML IV ONE (09:45)
[2022-07-16] MEDS ORDERED: PHYTONADIONE 10 MG/ML AMP SQ ONE (10:30)
[2022-07-16 10:41] LABS: INR 1.39; PROTHROMBIN TIME 18.2 seconds (11.9-14.5)
[2022-07-16] MEDS ORDERED: SODIUM CHLORIDE 0.9% 1000ML 0 ML ONE (12:47)
[2022-07-16] MEDS: ALBUTEROL/IPRATROPIUM 3 ML NEB NEB SCH (13:00)
[2022-07-16 15:06] LABS: BODY FLUID APPEARANCE CLOUDY; BODY FLUID COLOR RED
[2022-07-16 15:08] LABS: WBC,BODY FLUID 151701 cells/uL
[2022-07-16 15:09] LABS: RBC,BODY FLUID 2039000 cells/uL
[2022-07-16 16:19] LABS: BODY FLUID TYPE ASPIRATE
[2022-07-16 16:36] LABS: BASOPHILS,BODY FLUID 0 %; EOSINOPHILS,BODY FLUID 0 %; LYMPHOCYTES,BODY FLUID 1 %; MONO/MACROPHG,BODY FLUID 0 %; NEUTROPHILS,BODY FLUID 96 %; OTHER CELLS,BODY FLUID 3 %
[2022-07-16] MEDS ORDERED: PHYTONADIONE 10 MG/ML AMP SQ NR (17:30)
[2022-07-16] MEDS ORDERED: SODIUM CHLORIDE 0.9% 250ML 250 ML ONE ×2 (18:15→22:40)
[2022-07-16] MEDS: ACETAMINOPHEN 325 MG TAB PO PRN (20:45)
[2022-07-16] MEDS: PANTOPRAZOLE SOD 40 MG TABEC PO SCH (21:32)
[2022-07-16] MEDS: FUROSEMIDE INJ 10 MG/ML 2 ML VIAL IV PRN (21:55)
[2022-07-17] VITALS: BP 102/57
[2022-07-17] MEDS: FUROSEMIDE INJ 10 MG/ML 2 ML VIAL IV PRN (02:57)
[2022-07-17 06:12] VITALS: BP 107/68
[2022-07-17 07:07] LABS: BASOPHILS % 0.3 % (0.0-1.0); EOSINOPHILS # (AUTO) 0.2 (0.0-0.4); EOSINOPHILS % 2.9 % (0.0-6.0); HEMATOCRIT 27.8 % (34.2-44.1); HEMOGLOBIN 8.8 g/dL (12.0-16.0); LYMPHOCYTES # (AUTO) 0.6 (1.0-3.2); LYMPHOCYTES % 7.8 % (18.0-39.1); MEAN CORPUSCULAR HEMOGLOBIN 27.8 pg (28-32); MEAN CORPUSCULAR HGB CONC 31.7 g/dL (31-35); MONOCYTES # (AUTO) 0.7 (0.2-0.8); MONOCYTES % 9.5 % (4.4-11.3); NEUTROPHILS # (AUTO) 5.7 (2.1-6.9); NEUTROPHILS % 75.5 % (38.7-80.0); PLATELET COUNT 367 x10e3/uL (140-360); RED BLOOD COUNT 3.16 x10e6/uL (3.6-5.1); RED CELL DISTRIBUTION WIDTH 17.3 % (11.7-14.4)
[2022-07-17] MEDS: INSULIN LISPRO 100 UNIT/1 ML 3ML VIAL SQ SCH ×4 (07:30→21:00)
[2022-07-17 07:48] LABS: ANION GAP 14.4 mmol/L (8-16); CALCIUM 8.9 mg/dL (8.4-10.2); CREATININE, SERUM 0.91 mg/dL (0.57-1.11); POTASSIUM 3.4 mmol/L (3.5-5.1)
[2022-07-17] MEDS: DOXYCYCLINE HYCLATE TABLET 100 MG TAB PO SCH ×2 (09:00→16:37)
[2022-07-17] MEDS: BALSAM PERU/CASTOR OIL 60 GM OINT...G. TP SCH (09:00)
[2022-07-17] MEDS: HYDROCORTISONE 2.5% PR CRM 1 OZ TUBE PR SCH ×3 (09:00→21:00)
[2022-07-17] MEDS ORDERED: ALBUTEROL/IPRATROPIUM 3 ML NEB ONE (10:00)
[2022-07-17] MEDS: MIDODRINE 2.5 MG TAB PO SCH ×3 (10:12→15:51)
[2022-07-17] MEDS: DIGOXIN 0.125 MG TAB PO SCH (10:13)
[2022-07-17] MEDS: CITALOPRAM HYDROBROMIDE 20 MG TAB PO SCH (10:13)
[2022-07-17] MEDS: ANASTROZOLE 1 MG TAB PO SCH (10:13)
[2022-07-17] MEDS ORDERED: ALBUTEROL/IPRATROPIUM 3 ML NEB NEB PRN (10:45)
[2022-07-17] MEDS: ALBUTEROL/IPRATROPIUM 3 ML NEB NEB SCH ×2 (11:28→18:35)
[2022-07-17] MEDS ORDERED: ALBUTEROL/IPRATROPIUM 3 ML NEB NEB SCH (13:00)
[2022-07-17 13:29] VITALS: BP 110/46
[2022-07-17 17:02] VITALS: BP 105/59
[2022-07-17 20:00] VITALS: BP_SYST 107; BP_SYST 138; BP_DIAS 62; BP_DIAS 66
[2022-07-17] MEDS: PANTOPRAZOLE SOD 40 MG TABEC PO SCH (21:00)
[2022-07-18] VITALS: BP 105/52
[2022-07-18] MEDS: ALBUTEROL/IPRATROPIUM 3 ML NEB NEB SCH ×4 (00:12→19:09)
[2022-07-18 04:00] VITALS: BP 96/64
[2022-07-18] MEDS: INSULIN LISPRO 100 UNIT/1 ML 3ML VIAL SQ SCH ×4 (07:30→20:06)
[2022-07-18 08:13] VITALS: BP 113/66
[2022-07-18] MEDS: BALSAM PERU/CASTOR OIL 60 GM OINT...G. TP SCH (09:00)
[2022-07-18] MEDS: DIGOXIN 0.125 MG TAB PO SCH (09:29)
[2022-07-18] MEDS: ANASTROZOLE 1 MG TAB PO SCH (09:29)
[2022-07-18] MEDS: DOXYCYCLINE HYCLATE TABLET 100 MG TAB PO SCH ×2 (09:29→17:00)
[2022-07-18] MEDS: CITALOPRAM HYDROBROMIDE 20 MG TAB PO SCH (09:29)
[2022-07-18] MEDS: MIDODRINE 2.5 MG TAB PO SCH ×3 (09:29→16:00)
[2022-07-18] MEDS: HYDROCORTISONE 2.5% PR CRM 1 OZ TUBE PR SCH ×3 (09:29→20:32)
[2022-07-18] MEDS ORDERED: POTASSIUM CHLORIDE 10MEQ EA PO ONE (10:00)
[2022-07-18] MEDS ORDERED: FUROSEMIDE INJ 10 MG/ML 4 ML VIAL IV ONE (10:30)
[2022-07-18 12:08] VITALS: BP 116/67
[2022-07-18 16:25] VITALS: BP 110/46
[2022-07-18] MEDS ORDERED: RIVAROXABAN 10 MG TABLET PO SCH (17:00)
[2022-07-18 20:00] VITALS: BP 112/57
[2022-07-18] MEDS: PANTOPRAZOLE SOD 40 MG TABEC PO SCH (20:32)
[2022-07-18] MEDS: HYDROCODONE/APAP 10MG-325MG TAB PO PRN (23:35)
[2022-07-19] VITALS (8 sets, daily range): BP systolic 92–111; BP diastolic 54–66
[2022-07-19] MEDS: ALBUTEROL/IPRATROPIUM 3 ML NEB NEB SCH ×3 (01:00→19:05)
[2022-07-19 06:41] LABS: BASOPHILS % 0.6 % (0.0-1.0); EOSINOPHILS # (AUTO) 0.4 (0.0-0.4); EOSINOPHILS % 6.1 % (0.0-6.0); HEMATOCRIT 30.2 % (34.2-44.1); LYMPHOCYTES # (AUTO) 0.5 (1.0-3.2); LYMPHOCYTES % 7.7 % (18.0-39.1); MEAN CORPUSCULAR HGB CONC 29.8 g/dL (31-35); MEAN CORPUSCULAR VOLUME 94.1 fL (81-99); MONOCYTES # (AUTO) 0.7 (0.2-0.8); MONOCYTES % 11.1 % (4.4-11.3); NEUTROPHILS # (AUTO) 4.3 (2.1-6.9); NEUTROPHILS % 66.8 % (38.7-80.0); PLATELET COUNT 408 x10e3/uL (140-360); RED BLOOD COUNT 3.21 x10e6/uL (3.6-5.1); RED CELL DISTRIBUTION WIDTH 17.4 % (11.7-14.4)
[2022-07-19 07:00] LABS: ANION GAP 16.3 mmol/L (8-16); CALCIUM 8.6 mg/dL (8.4-10.2); CREATININE, SERUM 0.84 mg/dL (0.57-1.11); POTASSIUM 4.3 mmol/L (3.5-5.1)
[2022-07-19] MEDS: INSULIN LISPRO 100 UNIT/1 ML 3ML VIAL SQ SCH ×4 (07:30→21:57)
[2022-07-19] MEDS: MIDODRINE 2.5 MG TAB PO SCH ×3 (08:00→18:03)
[2022-07-19] MEDS: BALSAM PERU/CASTOR OIL 60 GM OINT...G. TP SCH (09:00)
[2022-07-19] MEDS: DIGOXIN 0.125 MG TAB PO SCH (09:00)
[2022-07-19] MEDS: HYDROCORTISONE 2.5% PR CRM 1 OZ TUBE PR SCH ×3 (09:00→22:12)
[2022-07-19] MEDS: DOXYCYCLINE HYCLATE TABLET 100 MG TAB PO SCH ×2 (09:00→18:04)
[2022-07-19] MEDS: CITALOPRAM HYDROBROMIDE 20 MG TAB PO SCH (09:00)
[2022-07-19] MEDS: ANASTROZOLE 1 MG TAB PO SCH (09:00)
[2022-07-19] MEDS: SODIUM CHLORIDE 0.9% 1000ML 1,000 ML IV SCH ×4 (10:03→21:51)
[2022-07-19] MEDS ORDERED: FENTANYL CITRATE/PF 100MCG/2 ML INJ ONE (14:04)
[2022-07-19] MEDS ORDERED: SUGAMMADEX SODIUM 200 MG/2 ML VIAL IV ONE (15:24)
[2022-07-19] MEDS ORDERED: NALOXONE HCL INJ 0.4 MG/ML AMP IV PRN (16:15)
[2022-07-19] MEDS ORDERED: ONDANSETRON HCL INJ 2MG/ML 2ML 2 MG/ML VIAL IV PRN (16:15)
[2022-07-19] MEDS ORDERED: HYDROMORPHONE 0.2MG/ML-SOD CHL 30ML PCA SYRINGE IV PRN (16:15)
[2022-07-19] MEDS ORDERED: HYDROMORPHONE 0.2MG/ML-SOD CHL 30ML PCA SYRINGE IV ONE (16:49)
[2022-07-19] MEDS ORDERED: PHENYLEPHRINE HCL 1% 10 MG/ML VIAL ONE (17:15)
[2022-07-19] MEDS ORDERED: ONDANSETRON HCL INJ 2MG/ML 2ML 2 MG/ML VIAL ONE (17:15)
[2022-07-19] MEDS ORDERED: POVIDONE IODINE 0.05% 0.05 % ML PO ONE (17:15)
[2022-07-19] MEDS ORDERED: SEVOFLURANE INHAL SOLN 250 ML PEN BTL ONE (17:15)
[2022-07-19] MEDS ORDERED: ROCURONIUM BROMIDE 10 MG/ML 5ML VIAL IV ONE (17:15)
[2022-07-19] MEDS ORDERED: PROPOFOL IV EMULSION 10 MG/ML 20 ML VIAL ONE (17:15)
[2022-07-19 17:58] LABS: INR 1.01; PARTIAL THROMBOPLASTIN TIME 31.6 seconds (23.8-35.5); PROTHROMBIN TIME 14.2 seconds (11.9-14.5)
[2022-07-19] MEDS ORDERED: ACETAMINOPHEN 1000 MG/100 ML IV SCH (18:00)
[2022-07-19] MEDS: PANTOPRAZOLE SOD 40 MG TABEC PO SCH (21:51)
[2022-07-20] VITALS (9 sets, daily range): BP systolic 94–107; BP diastolic 50–65
[2022-07-20] MEDS: ALBUTEROL/IPRATROPIUM 3 ML NEB NEB SCH ×4 (00:50→19:10)
[2022-07-20] MEDS: ACETAMINOPHEN 1000 MG/100 ML IV SCH ×3 (03:42→17:57)
[2022-07-20] MEDS: SODIUM CHLORIDE 0.9% 1000ML 1,000 ML IV SCH (04:17)
[2022-07-20 06:15] LABS: HEMATOCRIT 25.4 % (34.2-44.1); HEMOGLOBIN 7.6 g/dL (12.0-16.0)
[2022-07-20] MEDS: MIDODRINE 2.5 MG TAB PO SCH ×3 (09:58→17:58)
[2022-07-20] MEDS: DOXYCYCLINE HYCLATE TABLET 100 MG TAB PO SCH ×2 (09:58→17:58)
[2022-07-20] MEDS: ANASTROZOLE 1 MG TAB PO SCH (09:59)
[2022-07-20] MEDS: DIGOXIN 0.125 MG TAB PO SCH (09:59)
[2022-07-20] MEDS: CITALOPRAM HYDROBROMIDE 20 MG TAB PO SCH (09:59)
[2022-07-20] MEDS ORDERED: SODIUM CHLORIDE 0.9% 250ML 250 ML IV ONE (10:00)
[2022-07-20] MEDS ORDERED: FUROSEMIDE INJ 10 MG/ML 2 ML VIAL IV PRN (10:00)
[2022-07-20] MEDS: INSULIN LISPRO 100 UNIT/1 ML 3ML VIAL SQ SCH ×4 (10:04→20:48)
[2022-07-20] MEDS ORDERED: ONDANSETRON HCL 4 MG ORAL DISINTEGRATING TAB PO PRN (13:00)
[2022-07-20] MEDS: HYDROCORTISONE 2.5% PR CRM 1 OZ TUBE PR SCH ×3 (13:11→21:00)
[2022-07-20] MEDS: BALSAM PERU/CASTOR OIL 60 GM OINT...G. TP SCH (13:11)
[2022-07-20] MEDS ORDERED: SODIUM CHLORIDE 0.9% 250ML 250 ML ONE ×2 (15:59→21:10)
[2022-07-20] MEDS: PANTOPRAZOLE SOD 40 MG TABEC PO SCH (21:08)
[2022-07-21] VITALS (8 sets, daily range): BP systolic 99–110; BP diastolic 52–76
[2022-07-21] MEDS: ALBUTEROL/IPRATROPIUM 3 ML NEB NEB SCH ×4 (01:00→19:47)
[2022-07-21 05:35] LABS: BASOPHILS # (AUTO) 0.1 (0.0-0.1); BASOPHILS % 0.6 % (0.0-1.0); EOSINOPHILS # (AUTO) 0.3 (0.0-0.4); EOSINOPHILS % 3.8 % (0.0-6.0); HEMATOCRIT 29.3 % (34.2-44.1); LYMPHOCYTES # (AUTO) 0.6 (1.0-3.2); LYMPHOCYTES % 7.5 % (18.0-39.1); MEAN CORPUSCULAR HGB CONC 30.7 g/dL (31-35); MEAN CORPUSCULAR VOLUME 94.5 fL (81-99); MONOCYTES # (AUTO) 0.7 (0.2-0.8); MONOCYTES % 7.9 % (4.4-11.3); NEUTROPHILS # (AUTO) 6.3 (2.1-6.9); NEUTROPHILS % 73.8 % (38.7-80.0); PLATELET COUNT 312 x10e3/uL (140-360); RED CELL DISTRIBUTION WIDTH 17.2 % (11.7-14.4)
[2022-07-21 06:29] LABS: ANION GAP 15.8 mmol/L (8-16); CALCIUM 8.4 mg/dL (8.4-10.2); CREATININE, SERUM 1.01 mg/dL (0.57-1.11); POTASSIUM 4.8 mmol/L (3.5-5.1)
[2022-07-21] MEDS: INSULIN LISPRO 100 UNIT/1 ML 3ML VIAL SQ SCH ×4 (08:00→21:00)
[2022-07-21] MEDS: MIDODRINE 2.5 MG TAB PO SCH ×3 (08:30→16:55)
[2022-07-21] MEDS: APIXAB 2.5 MG TABLET PO SCH ×2 (10:00→17:30)
[2022-07-21] MEDS: BALSAM PERU/CASTOR OIL 60 GM OINT...G. TP SCH (10:00)
[2022-07-21] MEDS: DIGOXIN 0.125 MG TAB PO SCH (10:00)
[2022-07-21] MEDS: ANASTROZOLE 1 MG TAB PO SCH (10:00)
[2022-07-21] MEDS: HYDROCORTISONE 2.5% PR CRM 1 OZ TUBE PR SCH ×3 (10:00→21:17)
[2022-07-21] MEDS: CITALOPRAM HYDROBROMIDE 20 MG TAB PO SCH (10:00)
[2022-07-21] MEDS: DOXYCYCLINE HYCLATE TABLET 100 MG TAB PO SCH ×2 (10:01→17:30)
[2022-07-21] MEDS: HYDROCODONE/APAP 10MG-325MG TAB PO PRN ×2 (15:14→21:16)
[2022-07-21] MEDS: PANTOPRAZOLE SOD 40 MG TABEC PO SCH (21:15)
[2022-07-22] VITALS (8 sets, daily range): BP systolic 94–113; BP diastolic 54–76
[2022-07-22] MEDS: ALBUTEROL/IPRATROPIUM 3 ML NEB NEB SCH ×4 (01:08→19:00)
[2022-07-22 05:59] LABS: BASOPHILS # (AUTO) 0.1 (0.0-0.1); BASOPHILS % 0.7 % (0.0-1.0); EOSINOPHILS # (AUTO) 0.4 (0.0-0.4); EOSINOPHILS % 4.5 % (0.0-6.0); HEMOGLOBIN 8.9 g/dL (12.0-16.0); LYMPHOCYTES # (AUTO) 0.7 (1.0-3.2); LYMPHOCYTES % 8.4 % (18.0-39.1); MEAN CORPUSCULAR HEMOGLOBIN 28.8 pg (28-32); MEAN CORPUSCULAR HGB CONC 30.7 g/dL (31-35); MEAN CORPUSCULAR VOLUME 93.9 fL (81-99); MONOCYTES # (AUTO) 0.7 (0.2-0.8); MONOCYTES % 7.9 % (4.4-11.3); NEUTROPHILS # (AUTO) 6.3 (2.1-6.9); NEUTROPHILS % 72.6 % (38.7-80.0); PLATELET COUNT 422 x10e3/uL (140-360); RED BLOOD COUNT 3.09 x10e6/uL (3.6-5.1); RED CELL DISTRIBUTION WIDTH 17.5 % (11.7-14.4)
[2022-07-22] MEDS: HYDROCODONE/APAP 10MG-325MG TAB PO PRN (06:23)
[2022-07-22] MEDS: INSULIN LISPRO 100 UNIT/1 ML 3ML VIAL SQ SCH ×3 (07:30→16:30)
[2022-07-22] MEDS: APIXAB 2.5 MG TABLET PO SCH ×2 (10:31→16:37)
[2022-07-22] MEDS: MIDODRINE 2.5 MG TAB PO SCH ×3 (10:31→16:36)
[2022-07-22] MEDS: CITALOPRAM HYDROBROMIDE 20 MG TAB PO SCH (10:31)
[2022-07-22] MEDS: ANASTROZOLE 1 MG TAB PO SCH (10:31)
[2022-07-22] MEDS: DOXYCYCLINE HYCLATE TABLET 100 MG TAB PO SCH ×2 (10:32→16:37)
[2022-07-22] MEDS: BALSAM PERU/CASTOR OIL 60 GM OINT...G. TP SCH (10:32)
[2022-07-22] MEDS: HYDROCORTISONE 2.5% PR CRM 1 OZ TUBE PR SCH ×2 (10:32→16:36)
[2022-07-22] MEDS: DIGOXIN 0.125 MG TAB PO SCH (10:32)
== END 2022-07-22 23:31 | DRG 698 ==
LOC: ER 13:21 → ERHOLD 16:07 → MED/SURG3 17:22
PROVIDERS: ADMIT Internal Medicine; ATTEND Internal Medicine
PROC: 3E03329 Introduction of Other Anti-infective into Peripheral Vein, Percutaneous Approach (ICD-10-PCS; principal; 2022-07-10)
PROC: 3E04329 Introduction of Other Anti-infective into Central Vein, Percutaneous Approach (ICD-10-PCS; 2022-07-15)
PROC: 02HV33Z Insertion of Infusion Device into Superior Vena Cava, Percutaneous Approach (ICD-10-PCS; 2022-07-15)
DX: T83.518A Infection and inflammatory reaction due to other urinary catheter, initial encounter (principal); A41.51 Sepsis due to Escherichia coli [E. coli]; R65.21 Severe sepsis with septic shock; G92.8 Other toxic encephalopathy; L02.415 Cutaneous abscess of right lower limb; M96.842 Postprocedural seroma of a musculoskeletal structure following a musculoskeletal system procedure; I48.21 Permanent atrial fibrillation; D62 Acute posthemorrhagic anemia; J44.9 Chronic obstructive pulmonary disease, unspecified; B96.4 Proteus (mirabilis) (morganii) as the cause of diseases classified elsewhere; E66.01 Morbid (severe) obesity due to excess calories; Z68.39 Body mass index [BMI] 39.0-39.9, adult; Y83.8 Other surgical procedures as the cause of abnormal reaction of the patient, or of later complication, without mention of misadventure at the time of the procedure; Z79.01 Long term (current) use of anticoagulants; R33.9 Retention of urine, unspecified; M15.9 Polyosteoarthritis, unspecified; Z85.3 Personal history of malignant neoplasm of breast; K21.9 Gastro-esophageal reflux disease without esophagitis; Z99.89 Dependence on other enabling machines and devices; Z88.7 Allergy status to serum and vaccine; E11.69 Type 2 diabetes mellitus with other specified complication; E78.5 Hyperlipidemia, unspecified
CPT/HCPCS: 10160; 36415; 36569; 51700; 70450; 71045; 73701; 75989; 76942; 80048; 80053; 80162; 80307; 80329; 81001; 82140; 82550; 82553; 82948; 83605; 83735; 83880; 84100; 84484; 85014; 85018; 85025; 85610; 85730; 86850; 86900; 86920; 87040; 87070; 87071; 87075; 87086; 87186; 87205; 89051; 93005; 93971; 94799; 96361; 96372; 99251; 99285; J0690; J0696; J1160; J1940; J2001; J2370; J2405; J2543; J3010; J3370; J3430; J7030; J7040; J7050; P9016; Q9967

== ENCOUNTER 2022-08-25 17:21 | Inpatient (IN) | payer MEDICARE ==
[~2022-08-25] VITALS: Ht 170.2 cm; Wt 114.8 kg
[2022-08-25 17:56] LABS: BASOPHILS % 0.4 % (0.0-1.0); EOSINOPHILS # (AUTO) 0.1 (0.0-0.4); EOSINOPHILS % 1.7 % (0.0-6.0); HEMATOCRIT 32.6 % (34.2-44.1); HEMOGLOBIN 9.4 g/dL (12.0-16.0); LYMPHOCYTES # (AUTO) 0.7 (1.0-3.2); MEAN CORPUSCULAR HEMOGLOBIN 29.1 pg (28-32); MEAN CORPUSCULAR HGB CONC 28.8 g/dL (31-35); MEAN CORPUSCULAR VOLUME 100.9 fL (81-99); MONOCYTES # (AUTO) 0.5 (0.2-0.8); MONOCYTES % 7.4 % (4.4-11.3); NEUTROPHILS # (AUTO) 5.5 (2.1-6.9); NEUTROPHILS % 80.1 % (38.7-80.0); PLATELET COUNT 252 x10e3/uL (140-360); RED BLOOD COUNT 3.23 x10e6/uL (3.6-5.1); RED CELL DISTRIBUTION WIDTH 16.7 % (11.7-14.4)
[2022-08-25 18:16] LABS: ALBUMIN 2.9 g/dL (3.5-5.0); ALBUMIN/GLOBULIN RATIO 0.9 (0.8-2.0); ALKALINE PHOSPHATASE 106 IU/L (40-150); ANION GAP 14.2 mmol/L (8-16); BLOOD UREA NITROGEN 22 mg/dL (7-26); BUN/CREATININE RATIO 20 (6-25); CALCIUM 9.5 mg/dL (8.4-10.2); CARBON DIOXIDE 38 mmol/L (22-29); CHLORIDE 97 mmol/L (98-107); CREATININE, SERUM 1.08 mg/dL (0.57-1.11); GLUCOSE 171 mg/dL (74-118); POTASSIUM 4.2 mmol/L (3.5-5.1); SODIUM 145 mmol/L (136-145)
[2022-08-25 18:20] LABS: ALANINE AMINOTRANSFERASE < 6 IU/L (0-55)
[2022-08-25] MEDS ORDERED: SODIUM CHLORIDE 0.9% 500ML 500 ML IV STA (18:49)
[2022-08-25] MEDS ORDERED: IOPAMIDOL 370 MG/ML 100 ML INFUS..BTL INJ ONE (18:49)
[2022-08-25] MEDS ORDERED: FENTANYL CITRATE/PF 100MCG/2 ML INJ IV PRN (19:30)
[2022-08-25] MEDS ORDERED: SODIUM CHLORIDE 0.9% 1000ML 1,000 ML IV SCH (21:30)
[2022-08-25] MEDS ORDERED: ONDANSETRON HCL INJ 2MG/ML 2ML 2 MG/ML VIAL IV PRN (21:30)
[2022-08-25] MEDS ORDERED: GENTAMICIN SULFATE 60 MG in SODIUM CHLORIDE 0.9% 100 ML IV ONE (21:45)
[2022-08-25] MEDS: Morphine 4mg INJECTION 4 MG/ML INJ IV PRN (22:35)
[2022-08-26] VITALS (8 sets, daily range): BP systolic 103–115; BP diastolic 59–70
[2022-08-26 06:53] LABS: BASOPHILS % 0.6 % (0.0-1.0); EOSINOPHILS # (AUTO) 0.1 (0.0-0.4); EOSINOPHILS % 1.4 % (0.0-6.0); HEMATOCRIT 33.8 % (34.2-44.1); LYMPHOCYTES # (AUTO) 0.7 (1.0-3.2); LYMPHOCYTES % 10.1 % (18.0-39.1); MEAN CORPUSCULAR HEMOGLOBIN 29.4 pg (28-32); MEAN CORPUSCULAR HGB CONC 29.6 g/dL (31-35); MEAN CORPUSCULAR VOLUME 99.4 fL (81-99); MONOCYTES # (AUTO) 0.6 (0.2-0.8); MONOCYTES % 9.4 % (4.4-11.3); PLATELET COUNT 225 x10e3/uL (140-360); RED CELL DISTRIBUTION WIDTH 16.8 % (11.7-14.4)
[2022-08-26 07:15] LABS: ANION GAP 12.3 mmol/L (8-16); CALCIUM 9.2 mg/dL (8.4-10.2); CREATININE, SERUM 0.91 mg/dL (0.57-1.11); POTASSIUM 4.3 mmol/L (3.5-5.1)
[2022-08-26] MEDS ORDERED: TOBRAMYCIN/DEXAMETHASONE(OPTH) 5 ML BTL OU PRN (08:30)
[2022-08-26] MEDS ORDERED: MIDODRINE 2.5 MG TAB PO PRN (08:30)
[2022-08-26] MEDS ORDERED: ACETAMINOPHEN 325 MG TAB PO PRN (08:30)
[2022-08-26] MEDS: ANASTROZOLE 1 MG TAB PO SCH (10:13)
[2022-08-26] MEDS: FERROUS SULFATE 325 MG TAB PO SCH ×2 (10:13→21:00)
[2022-08-26] MEDS: MEROPENEM 1 GM in SODIUM CHLORIDE 0.9% 100 ML IV SCH ×2 (10:13→17:03)
[2022-08-26] MEDS: FUROSEMIDE INJ 10 MG/ML 4 ML VIAL IV SCH (10:13)
[2022-08-26] MEDS: SPIRONOLACTONE 25 MG TAB PO SCH (10:13)
[2022-08-26] MEDS: DIGOXIN 0.125 MG TAB PO SCH (10:13)
[2022-08-26] MEDS: CITALOPRAM HYDROBROMIDE 20 MG TAB PO SCH (10:13)
[2022-08-26] MEDS: ATORVASTATIN 40 MG TAB PO SCH (21:00)
[2022-08-26] MEDS: PANTOPRAZOLE SOD 40 MG TABEC PO SCH (21:00)
[2022-08-26] MEDS ORDERED: RIVAROXABAN 20 MG TABLET PO SCH (21:00)
[2022-08-26] MEDS ORDERED: BISMUTH SUBSALICYLATE 262 MG/15 ML 8OZ BTL PO PRN (23:15)
[2022-08-27] VITALS (7 sets, daily range): BP systolic 100–122; BP diastolic 56–73
[2022-08-27] MEDS: MEROPENEM 1 GM in SODIUM CHLORIDE 0.9% 100 ML IV SCH ×3 (01:26→17:13)
[2022-08-27] MEDS: Morphine 4mg INJECTION 4 MG/ML INJ IV PRN (02:41)
[2022-08-27 05:06] LABS: BASOPHILS % 0.5 % (0.0-1.0); EOSINOPHILS # (AUTO) 0.1 (0.0-0.4); EOSINOPHILS % 1.7 % (0.0-6.0); HEMOGLOBIN 8.9 g/dL (12.0-16.0); LYMPHOCYTES # (AUTO) 0.6 (1.0-3.2); LYMPHOCYTES % 9.4 % (18.0-39.1); MEAN CORPUSCULAR HEMOGLOBIN 29.1 pg (28-32); MEAN CORPUSCULAR HGB CONC 29.7 g/dL (31-35); MONOCYTES # (AUTO) 0.6 (0.2-0.8); MONOCYTES % 9.4 % (4.4-11.3); NEUTROPHILS # (AUTO) 4.7 (2.1-6.9); NEUTROPHILS % 78.5 % (38.7-80.0); PLATELET COUNT 215 x10e3/uL (140-360); RED BLOOD COUNT 3.06 x10e6/uL (3.6-5.1); RED CELL DISTRIBUTION WIDTH 16.6 % (11.7-14.4)
[2022-08-27 05:26] LABS: ANION GAP 10.3 mmol/L (8-16); CALCIUM 9.5 mg/dL (8.4-10.2); CREATININE, SERUM 0.82 mg/dL (0.57-1.11); POTASSIUM 4.3 mmol/L (3.5-5.1)
[2022-08-27] MEDS: SPIRONOLACTONE 25 MG TAB PO SCH (09:00)
[2022-08-27] MEDS: FERROUS SULFATE 325 MG TAB PO SCH ×2 (09:00→22:00)
[2022-08-27] MEDS ORDERED: BALSAM PERU/CASTOR OIL 60 GM OINT...G. TP SCH (09:00)
[2022-08-27] MEDS: FUROSEMIDE INJ 10 MG/ML 4 ML VIAL IV SCH (09:00)
[2022-08-27] MEDS ORDERED: MEROPENEM 1 GM VIAL ONE ×2 (09:19→16:45)
[2022-08-27] MEDS: DIGOXIN 0.125 MG TAB PO SCH (10:00)
[2022-08-27] MEDS: CITALOPRAM HYDROBROMIDE 20 MG TAB PO SCH (10:00)
[2022-08-27] MEDS ORDERED: SODIUM CHLORIDE 0.9% 250ML 250 ML ONE (11:12)
[2022-08-27 11:17] LABS: INR 0.95; PROTHROMBIN TIME 13.6 seconds (11.9-14.5)
[2022-08-27] MEDS: ANASTROZOLE 1 MG TAB PO SCH (11:28)
[2022-08-27] MEDS ORDERED: LIDOCAINE HCL 1% LOCAL INJ 20 ML VIAL ONE (12:57)
[2022-08-27] MEDS: ATORVASTATIN 40 MG TAB PO SCH (22:00)
[2022-08-27] MEDS: PANTOPRAZOLE SOD 40 MG TABEC PO SCH (22:01)
[2022-08-27] MEDS: BALSAM PERU/CASTOR OIL 60 GM OINT...G. TP SCH (22:02)
[2022-08-28] VITALS (8 sets, daily range): BP systolic 96–123; BP diastolic 59–75
[2022-08-28] MEDS: MEROPENEM 1 GM in SODIUM CHLORIDE 0.9% 100 ML IV SCH ×3 (01:14→16:55)
[2022-08-28] MEDS: Morphine 4mg INJECTION 4 MG/ML INJ IV PRN (01:15)
[2022-08-28] MEDS: SPIRONOLACTONE 25 MG TAB PO SCH (09:00)
[2022-08-28] MEDS: CITALOPRAM HYDROBROMIDE 20 MG TAB PO SCH (09:35)
[2022-08-28] MEDS: FUROSEMIDE INJ 10 MG/ML 4 ML VIAL IV SCH (09:35)
[2022-08-28] MEDS: ANASTROZOLE 1 MG TAB PO SCH (09:35)
[2022-08-28] MEDS: FERROUS SULFATE 325 MG TAB PO SCH ×2 (09:36→20:40)
[2022-08-28] MEDS: DIGOXIN 0.125 MG TAB PO SCH (09:37)
[2022-08-28] MEDS: ONDANSETRON HCL 4 MG ORAL DISINTEGRATING TAB PO PRN (10:43)
[2022-08-28] MEDS: PANTOPRAZOLE SOD 40 MG TABEC PO SCH (20:40)
[2022-08-28] MEDS: ATORVASTATIN 40 MG TAB PO SCH (20:40)
[2022-08-28] MEDS: BALSAM PERU/CASTOR OIL 60 GM OINT...G. TP SCH (20:40)
[2022-08-29] VITALS (8 sets, daily range): BP systolic 102–152; BP diastolic 58–89
[2022-08-29] MEDS: MEROPENEM 1 GM in SODIUM CHLORIDE 0.9% 100 ML IV SCH ×3 (00:24→17:05)
[2022-08-29] MEDS ORDERED: SODIUM CHLORIDE 0.9% 250ML 250 ML ONE (08:33)
[2022-08-29] MEDS: ANASTROZOLE 1 MG TAB PO SCH (10:01)
[2022-08-29] MEDS: DIGOXIN 0.125 MG TAB PO SCH (10:01)
[2022-08-29] MEDS: CITALOPRAM HYDROBROMIDE 20 MG TAB PO SCH (10:01)
[2022-08-29] MEDS: SPIRONOLACTONE 25 MG TAB PO SCH (10:01)
[2022-08-29] MEDS: FERROUS SULFATE 325 MG TAB PO SCH ×2 (10:01→21:17)
[2022-08-29] MEDS: FUROSEMIDE INJ 10 MG/ML 4 ML VIAL IV SCH (10:02)
[2022-08-29] MEDS: Vancomycin IV 1 GM in SODIUM CHLORIDE 0.9% 250ML 250 ML IV SCH ×2 (11:05→21:18)
[2022-08-29] MEDS: ONDANSETRON HCL 4 MG ORAL DISINTEGRATING TAB PO PRN (18:38)
[2022-08-29] MEDS: Morphine 4mg INJECTION 4 MG/ML INJ IV PRN (18:38)
[2022-08-29] MEDS: ATORVASTATIN 40 MG TAB PO SCH (21:17)
[2022-08-29] MEDS: PANTOPRAZOLE SOD 40 MG TABEC PO SCH (21:17)
[2022-08-29] MEDS: BALSAM PERU/CASTOR OIL 60 GM OINT...G. TP SCH (21:18)
[2022-08-30] VITALS (7 sets, daily range): BP systolic 92–115; BP diastolic 57–82
[2022-08-30] MEDS: MEROPENEM 1 GM in SODIUM CHLORIDE 0.9% 100 ML IV SCH ×3 (00:50→17:00)
[2022-08-30 04:56] LABS: BASOPHILS % 0.5 % (0.0-1.0); EOSINOPHILS # (AUTO) 0.2 (0.0-0.4); EOSINOPHILS % 3.6 % (0.0-6.0); HEMATOCRIT 33.3 % (34.2-44.1); HEMOGLOBIN 9.9 g/dL (12.0-16.0); LYMPHOCYTES # (AUTO) 0.6 (1.0-3.2); LYMPHOCYTES % 10.4 % (18.0-39.1); MEAN CORPUSCULAR HGB CONC 29.7 g/dL (31-35); MEAN CORPUSCULAR VOLUME 97.7 fL (81-99); MONOCYTES # (AUTO) 0.6 (0.2-0.8); MONOCYTES % 9.6 % (4.4-11.3); NEUTROPHILS # (AUTO) 4.6 (2.1-6.9); NEUTROPHILS % 75.4 % (38.7-80.0); PLATELET COUNT 236 x10e3/uL (140-360); RED BLOOD COUNT 3.41 x10e6/uL (3.6-5.1); RED CELL DISTRIBUTION WIDTH 16.5 % (11.7-14.4)
[2022-08-30 05:14] LABS: ANION GAP 15.8 mmol/L (8-16); CALCIUM 9.1 mg/dL (8.4-10.2); CREATININE, SERUM 1.01 mg/dL (0.57-1.11); POTASSIUM 3.8 mmol/L (3.5-5.1)
[2022-08-30] MEDS: ANASTROZOLE 1 MG TAB PO SCH (08:36)
[2022-08-30] MEDS: CITALOPRAM HYDROBROMIDE 20 MG TAB PO SCH (08:36)
[2022-08-30] MEDS: DIGOXIN 0.125 MG TAB PO SCH (08:36)
[2022-08-30] MEDS: FERROUS SULFATE 325 MG TAB PO SCH ×2 (08:37→21:24)
[2022-08-30] MEDS: SPIRONOLACTONE 25 MG TAB PO SCH (08:37)
[2022-08-30] MEDS: Vancomycin IV 1 GM in SODIUM CHLORIDE 0.9% 250ML 250 ML IV SCH ×2 (09:00→21:24)
[2022-08-30] MEDS ORDERED: SODIUM CHLORIDE 0.9% 100 ML ONE (16:19)
[2022-08-30] MEDS: Morphine 4mg INJECTION 4 MG/ML INJ IV PRN (20:45)
[2022-08-30] MEDS: PANTOPRAZOLE SOD 40 MG TABEC PO SCH (21:24)
[2022-08-30] MEDS: ATORVASTATIN 40 MG TAB PO SCH (21:24)
[2022-08-30] MEDS: BALSAM PERU/CASTOR OIL 60 GM OINT...G. TP SCH (22:14)
[2022-08-31] MEDS: MEROPENEM 1 GM in SODIUM CHLORIDE 0.9% 100 ML IV SCH ×3 (01:00→18:03)
[2022-08-31] MEDS: Morphine 4mg INJECTION 4 MG/ML INJ IV PRN (02:43)
[2022-08-31 08:20] VITALS: BP 107/76
[2022-08-31 08:24] VITALS: BP 92/63
[2022-08-31] MEDS ORDERED: FUROSEMIDE 40 MG TAB PO SCH (09:00)
[2022-08-31 09:11] LABS: ABG PCO2 96 mmHg (35-45); ABG PH 7.32 (7.35-7.45)
[2022-08-31 09:12] LABS: ABG HCO3 50 mmol/L (22-26); ABG PO2 92 mmHg (80-105); ABG TCO2 > 50
[2022-08-31] MEDS: CITALOPRAM HYDROBROMIDE 20 MG TAB PO SCH (09:22)
[2022-08-31] MEDS: FERROUS SULFATE 325 MG TAB PO SCH ×2 (09:22→19:41)
[2022-08-31] MEDS: DIGOXIN 0.125 MG TAB PO SCH (09:22)
[2022-08-31] MEDS: FUROSEMIDE 40 MG TAB PO SCH ×2 (09:22→18:03)
[2022-08-31] MEDS: SPIRONOLACTONE 25 MG TAB PO SCH (09:22)
[2022-08-31] MEDS: ANASTROZOLE 1 MG TAB PO SCH (09:22)
[2022-08-31] MEDS: Vancomycin IV 1 GM in SODIUM CHLORIDE 0.9% 250ML 250 ML IV SCH ×2 (09:31→19:42)
[2022-08-31 10:06] LABS: ANION GAP 9.6 mmol/L (8-16); CALCIUM 8.7 mg/dL (8.4-10.2); CREATININE, SERUM 0.85 mg/dL (0.57-1.11); POTASSIUM 4.6 mmol/L (3.5-5.1)
[2022-08-31 12:12] VITALS: BP 102/77
[2022-08-31 16:17] VITALS: BP 109/64
[2022-08-31] MEDS: SALMETEROL/FLUTICASONE 250/50 INH SCH (19:00)
[2022-08-31 19:40] VITALS: BP 111/58
[2022-08-31] MEDS: PANTOPRAZOLE SOD 40 MG TABEC PO SCH (19:41)
[2022-08-31] MEDS: ATORVASTATIN 40 MG TAB PO SCH (19:42)
[2022-08-31] MEDS: BALSAM PERU/CASTOR OIL 60 GM OINT...G. TP SCH (19:43)
[2022-08-31] MEDS: HYDROCODONE/APAP 7.5MG-325MG 1 EA TAB PO PRN (22:12)
[2022-09-01] MEDS: LEVALBUTEROL HCL SOLN NEBU 0.63 MG/3 ML NEB INH SCH ×4 (02:15→19:15)
[2022-09-01] MEDS: IPRATROPIUM BROMIDE 0.02% 2.5 ML NEB NEB SCH ×4 (02:15→19:15)
[2022-09-01] MEDS: MEROPENEM 1 GM in SODIUM CHLORIDE 0.9% 100 ML IV SCH ×3 (02:21→17:00)
[2022-09-01 04:58] VITALS: BP 132/75
[2022-09-01 05:32] LABS: CALCIUM 8.5 mg/dL (8.4-10.2); CREATININE, SERUM 0.99 mg/dL (0.57-1.11)
[2022-09-01] MEDS: SALMETEROL/FLUTICASONE 250/50 INH SCH ×2 (07:15→19:15)
[2022-09-01 08:00] VITALS: BP 91/60
[2022-09-01] MEDS: ACETAZOLAMIDE 250 MG TAB PO SCH (09:00)
[2022-09-01] MEDS: FERROUS SULFATE 325 MG TAB PO SCH ×2 (09:00→20:11)
[2022-09-01] MEDS: SPIRONOLACTONE 25 MG TAB PO SCH (09:00)
[2022-09-01] MEDS: CITALOPRAM HYDROBROMIDE 20 MG TAB PO SCH (09:00)
[2022-09-01] MEDS: DIGOXIN 0.125 MG TAB PO SCH (09:00)
[2022-09-01] MEDS: FUROSEMIDE 40 MG TAB PO SCH ×2 (09:00→18:19)
[2022-09-01] MEDS: ANASTROZOLE 1 MG TAB PO SCH (09:00)
[2022-09-01 11:55] VITALS: BP 91/60
[2022-09-01 13:00] VITALS: BP 93/68
[2022-09-01 14:17] VITALS: BP 105/69
[2022-09-01 20:00] VITALS: BP 115/104
[2022-09-01] MEDS: PANTOPRAZOLE SOD 40 MG TABEC PO SCH (20:11)
[2022-09-01] MEDS: ONDANSETRON HCL 4 MG ORAL DISINTEGRATING TAB PO PRN (20:11)
[2022-09-01] MEDS: HYDROCODONE/APAP 7.5MG-325MG 1 EA TAB PO PRN (20:11)
[2022-09-01] MEDS: ATORVASTATIN 40 MG TAB PO SCH (20:11)
[2022-09-01] MEDS: BALSAM PERU/CASTOR OIL 60 GM OINT...G. TP SCH (20:18)
[2022-09-02] MEDS: LEVALBUTEROL HCL SOLN NEBU 0.63 MG/3 ML NEB INH SCH ×4 (01:05→20:15)
[2022-09-02] MEDS: IPRATROPIUM BROMIDE 0.02% 2.5 ML NEB NEB SCH ×4 (01:05→20:15)
[2022-09-02] MEDS: MEROPENEM 1 GM in SODIUM CHLORIDE 0.9% 100 ML IV SCH ×3 (05:27→17:00)
[2022-09-02 05:28] VITALS: BP 122/86
[2022-09-02] MEDS: SALMETEROL/FLUTICASONE 250/50 INH SCH ×2 (07:30→20:15)
[2022-09-02 08:29] VITALS: BP 113/61
[2022-09-02] MEDS: FUROSEMIDE 40 MG TAB PO SCH ×2 (09:00→17:00)
[2022-09-02] MEDS: FERROUS SULFATE 325 MG TAB PO SCH ×2 (09:00→21:07)
[2022-09-02] MEDS: CITALOPRAM HYDROBROMIDE 20 MG TAB PO SCH (09:00)
[2022-09-02] MEDS: ANASTROZOLE 1 MG TAB PO SCH (09:00)
[2022-09-02] MEDS: ACETAZOLAMIDE 250 MG TAB PO SCH (09:00)
[2022-09-02] MEDS: SPIRONOLACTONE 25 MG TAB PO SCH (09:00)
[2022-09-02] MEDS: DIGOXIN 0.125 MG TAB PO SCH (09:00)
[2022-09-02 09:20] LABS: BASOPHILS % 0.6 % (0.0-1.0); EOSINOPHILS # (AUTO) 0.2 (0.0-0.4); EOSINOPHILS % 3.8 % (0.0-6.0); HEMATOCRIT 31.8 % (34.2-44.1); HEMOGLOBIN 9.4 g/dL (12.0-16.0); LYMPHOCYTES # (AUTO) 0.6 (1.0-3.2); MEAN CORPUSCULAR HGB CONC 29.6 g/dL (31-35); MEAN CORPUSCULAR VOLUME 98.1 fL (81-99); MONOCYTES # (AUTO) 0.5 (0.2-0.8); MONOCYTES % 10.1 % (4.4-11.3); NEUTROPHILS # (AUTO) 3.8 (2.1-6.9); NEUTROPHILS % 73.3 % (38.7-80.0); PLATELET COUNT 216 x10e3/uL (140-360); RED BLOOD COUNT 3.24 x10e6/uL (3.6-5.1); RED CELL DISTRIBUTION WIDTH 16.8 % (11.7-14.4)
[2022-09-02 09:36] LABS: CALCIUM 8.7 mg/dL (8.4-10.2); CREATININE, SERUM 0.9 mg/dL (0.57-1.11)
[2022-09-02] MEDS: Vancomycin IV 1.5 GM in SODIUM CHLORIDE 0.9% 250ML 300 ML IV SCH ×2 (10:00→20:43)
[2022-09-02] MEDS ORDERED: Vancomycin IV 1.5 GM in SODIUM CHLORIDE 0.9% 250ML 250 ML IV SCH (10:00)
[2022-09-02 11:53] VITALS: BP 105/62
[2022-09-02 15:12] VITALS: BP 105/62
[2022-09-02 15:39] VITALS: BP 109/65
[2022-09-02] MEDS: ATORVASTATIN 40 MG TAB PO SCH (21:07)
[2022-09-02] MEDS: PANTOPRAZOLE SOD 40 MG TABEC PO SCH (21:09)
[2022-09-02] MEDS: BALSAM PERU/CASTOR OIL 60 GM OINT...G. TP SCH (21:09)
[2022-09-02 22:53] VITALS: BP 109/65
[2022-09-03] MEDS: MEROPENEM 1 GM in SODIUM CHLORIDE 0.9% 100 ML IV SCH ×2 (00:25→09:19)
[2022-09-03] MEDS: IPRATROPIUM BROMIDE 0.02% 2.5 ML NEB NEB SCH ×2 (01:25→06:10)
[2022-09-03] MEDS: LEVALBUTEROL HCL SOLN NEBU 0.63 MG/3 ML NEB INH SCH ×2 (01:25→06:10)
[2022-09-03] MEDS: HYDROCODONE/APAP 7.5MG-325MG 1 EA TAB PO PRN ×2 (03:07→09:25)
[2022-09-03 04:00] VITALS: BP 92/49
[2022-09-03] MEDS: SALMETEROL/FLUTICASONE 250/50 INH SCH (06:34)
[2022-09-03 08:54] VITALS: BP 112/77
[2022-09-03] MEDS: FUROSEMIDE 40 MG TAB PO SCH (09:19)
[2022-09-03] MEDS: CITALOPRAM HYDROBROMIDE 20 MG TAB PO SCH (09:19)
[2022-09-03] MEDS: Vancomycin IV 1.5 GM in SODIUM CHLORIDE 0.9% 250ML 300 ML IV SCH (09:19)
[2022-09-03] MEDS: DIGOXIN 0.125 MG TAB PO SCH (09:20)
[2022-09-03] MEDS: ANASTROZOLE 1 MG TAB PO SCH (09:20)
[2022-09-03] MEDS: FERROUS SULFATE 325 MG TAB PO SCH (09:20)
[2022-09-03] MEDS: SPIRONOLACTONE 25 MG TAB PO SCH (09:20)
== END 2022-09-03 11:45 | disposition home health service (06) | DRG 919 ==
LOC: ER 17:34 → ERHOLD 21:26 → MED/SURG 08-26 02:04 → OBSVTOIN 08-26 08:29
PROVIDERS: ADMIT Internal Medicine; ATTEND Internal Medicine
PROC: 0S9D3ZX Drainage of Left Knee Joint, Percutaneous Approach, Diagnostic (ICD-10-PCS; 2022-08-27)
PROC: 02HV33Z Insertion of Infusion Device into Superior Vena Cava, Percutaneous Approach (ICD-10-PCS; principal; 2022-08-30)
DX: T81.31XA Disruption of external operation (surgical) wound, not elsewhere classified, initial encounter (principal); J96.21 Acute and chronic respiratory failure with hypoxia; J96.22 Acute and chronic respiratory failure with hypercapnia; M96.840 Postprocedural hematoma of a musculoskeletal structure following a musculoskeletal system procedure; T81.41XA Infection following a procedure, superficial incisional surgical site, initial encounter; I48.20 Chronic atrial fibrillation, unspecified; I50.32 Chronic diastolic (congestive) heart failure; L03.116 Cellulitis of left lower limb; J44.9 Chronic obstructive pulmonary disease, unspecified; F01.50 Vascular dementia, unspecified severity, without behavioral disturbance, psychotic disturbance, mood disturbance, and anxiety; E11.42 Type 2 diabetes mellitus with diabetic polyneuropathy; I11.0 Hypertensive heart disease with heart failure; Z99.81 Dependence on supplemental oxygen; B96.5 Pseudomonas (aeruginosa) (mallei) (pseudomallei) as the cause of diseases classified elsewhere; B95.62 Methicillin resistant Staphylococcus aureus infection as the cause of diseases classified elsewhere; E66.01 Morbid (severe) obesity due to excess calories; G47.33 Obstructive sleep apnea (adult) (pediatric); E78.00 Pure hypercholesterolemia, unspecified; Z79.84 Long term (current) use of oral hypoglycemic drugs; Z85.3 Personal history of malignant neoplasm of breast; Z68.39 Body mass index [BMI] 39.0-39.9, adult; Z88.7 Allergy status to serum and vaccine; Z87.891 Personal history of nicotine dependence; Z91.199 Patient's noncompliance with other medical treatment and regimen due to unspecified reason; I27.20 Pulmonary hypertension, unspecified
CPT/HCPCS: 0223U; 10160; 36415; 36569; 36600; 71045; 73701; 74470; 76942; 80048; 80053; 80202; 82805; 82948; 83605; 85025; 85610; 85651; 87040; 87070; 87071; 87186; 87205; 87324; 87449; 93005; 94640; 94660; 94799; 99251; 99285; G0378; J1580; J1940; J2001; J2185; J2270; J2405; J3010; J3370; J7030; J7040; J7050; Q0162; Q9967

== ENCOUNTER 2022-12-13 12:10 | Inpatient (IN) | payer MEDICARE, OTHER ==
[~2022-12-13] VITALS: Ht 170.2 cm; Wt 93.4 kg
[2022-12-13] MEDS ORDERED: SODIUM CHLORIDE 0.9% 1000ML 500 ML IV ONE (12:45)
[2022-12-13] MEDS ORDERED: ASPIRIN 81 MG CHEW TAB PO ONE (12:45)
[2022-12-13] MEDS ORDERED: DILTIAZEM HCL 5 MG/ML 5 ML VIAL IV STA (13:19)
[2022-12-13 13:38] LABS: BASOPHILS # (AUTO) 0.1 (0.0-0.1); BASOPHILS % 0.6 % (0.0-1.0); EOSINOPHILS # (AUTO) 0.2 (0.0-0.4); EOSINOPHILS % 2.8 % (0.0-6.0); HEMOGLOBIN 13.2 g/dL (12.0-16.0); LYMPHOCYTES # (AUTO) 1.1 (1.0-3.2); LYMPHOCYTES % 13.8 % (18.0-39.1); MEAN CORPUSCULAR HEMOGLOBIN 30.3 pg (28-32); MEAN CORPUSCULAR HGB CONC 30.7 g/dL (31-35); MEAN CORPUSCULAR VOLUME 98.9 fL (81-99); MONOCYTES # (AUTO) 0.6 (0.2-0.8); MONOCYTES % 7.4 % (4.4-11.3); NEUTROPHILS # (AUTO) 6.1 (2.1-6.9); NEUTROPHILS % 74.9 % (38.7-80.0); PLATELET COUNT 283 x10e3/uL (140-360); RED BLOOD COUNT 4.35 x10e6/uL (3.6-5.1)
[2022-12-13 13:48] LABS: INR 0.98; PROTHROMBIN TIME 13.2 seconds (11.9-14.5)
[2022-12-13 13:50] LABS: CLARITY,URINE SL CLOUDY (CLEAR); COLOR,URINE YELLOW (YELLOW)
[2022-12-13 13:51] LABS: KETONES,URINE 1+ (NEGATIVE); LEUKOCYTE ESTERASE ,URINE NEGATIVE (NEGATIVE); NITRITE,URINE NEGATIVE (NEGATIVE); PROTEIN,URINE DIPSTICK TRACE (NEGATIVE); URINE UROBILINOGEN 0.2 mg/dL (0.2 - 1)
[2022-12-13 13:59] LABS: ALBUMIN 3.3 g/dL (3.5-5.0); ALBUMIN/GLOBULIN RATIO 0.9 (0.8-2.0); ANION GAP 17.3 mmol/L (8-16); CALCIUM 9.7 mg/dL (8.4-10.2); CREATININE, SERUM 1.11 mg/dL (0.57-1.11); POTASSIUM 4.3 mmol/L (3.5-5.1)
[2022-12-13 14:05] LABS: CREATINE KINASE MB 2.7 ng/mL (0-5.0)
[2022-12-13 14:11] LABS: BACTERIA,URINE MODERATE /HPF; RBC,URINE 0-5 /HPF (0-5); WBC,URINE (MAN) 0-5 /HPF (0-5)
[2022-12-13 14:12] LABS: EPITHELIAL CELLS,URINE MANY /LPF; MUCUS,URINE FEW (RARE)
[2022-12-13 14:21] LABS: MAGNESIUM 1.9 MG/DL (1.3-2.1); PHOSPHORUS 4.3 MG/DL (2.3-4.7)
[2022-12-13] MEDS ORDERED: ACETAMINOPHEN 325 MG TAB PO ONE (15:30)
[2022-12-13] MEDS ORDERED: ONDANSETRON HCL INJ 2MG/ML 2ML 2 MG/ML VIAL IV PRN (17:15)
[2022-12-13] MEDS ORDERED: SODIUM CHLORIDE FLUSH 10 ML SYR INJ PRN (17:15)
[2022-12-13 17:57] LABS: AMPHETAMINES SCREEN,URINE NEGATIVE (NEGATIVE); PHENCYCLIDINE SCREEN,URINE NEGATIVE (NEGATIVE)
[2022-12-13 17:58] LABS: BENZODIAZEPINES SCREEN,URINE POSITIVE (NEGATIVE)
[2022-12-13] MEDS ORDERED: DIGOXIN INJ 0.25 MG/ML 2 ML AMP IV ONE (18:00)
[2022-12-13] MEDS ORDERED: LORAZEPAM INJ 2 MG/ML VIAL IV ONE (19:00)
[2022-12-14] VITALS (28 sets, daily range): BP systolic 73–126; BP diastolic 48–82
[2022-12-14 05:07] LABS: BASOPHILS % 0.4 % (0.0-1.0); EOSINOPHILS # (AUTO) 0.1 (0.0-0.4); EOSINOPHILS % 1.3 % (0.0-6.0); HEMATOCRIT 43.5 % (34.2-44.1); HEMOGLOBIN 12.9 g/dL (12.0-16.0); LYMPHOCYTES # (AUTO) 0.8 (1.0-3.2); LYMPHOCYTES % 10.3 % (18.0-39.1); MEAN CORPUSCULAR HEMOGLOBIN 31.2 pg (28-32); MEAN CORPUSCULAR HGB CONC 29.7 g/dL (31-35); MEAN CORPUSCULAR VOLUME 105.1 fL (81-99); MONOCYTES # (AUTO) 0.5 (0.2-0.8); MONOCYTES % 6.9 % (4.4-11.3); NEUTROPHILS # (AUTO) 6.2 (2.1-6.9); NEUTROPHILS % 80.8 % (38.7-80.0); PLATELET COUNT 246 x10e3/uL (140-360); RED BLOOD COUNT 4.14 x10e6/uL (3.6-5.1); RED CELL DISTRIBUTION WIDTH 16.6 % (11.7-14.4)
[2022-12-14 05:26] LABS: ANION GAP 16.5 mmol/L (8-16); CREATININE, SERUM 1.02 mg/dL (0.57-1.11); POTASSIUM 4.5 mmol/L (3.5-5.1)
[2022-12-14] MEDS: DIGOXIN 0.125 MG TAB PO SCH (09:00)
[2022-12-14] MEDS ORDERED: METOPROLOL TARTRATE INJ 1 MG/ML VIAL IV PRN (12:00)
[2022-12-14 12:04] LABS: CHOL/HDL RATIO 5.5 (3.0-3.6)
[2022-12-14] MEDS: SODIUM CHLORIDE 0.9% 1000ML 1,000 ML IV SCH (12:10)
[2022-12-14] MEDS ORDERED: SODIUM CHLORIDE 0.9% 1000ML 1,000 ML IV SCH (16:00)
[2022-12-14] MEDS: FAMOTIDINE 20 MG TAB PO SCH (16:05)
[2022-12-14] MEDS: RIVAROXABAN 20 MG TABLET PO SCH (16:06)
[2022-12-14] MEDS: METOPROLOL TARTRATE 25 MG TAB PO SCH (16:06)
[2022-12-14] MEDS: ATORVASTATIN 40 MG TAB PO SCH (21:00)
[2022-12-15] VITALS (29 sets, daily range): BP systolic 82–121; BP diastolic 53–84
[2022-12-15] MEDS: SODIUM CHLORIDE 0.9% 1000ML 1,000 ML IV SCH (02:09)
[2022-12-15] MEDS: FAMOTIDINE 20 MG TAB PO SCH ×2 (07:30→16:28)
[2022-12-15] MEDS: SPIRONOLACTONE 25 MG TAB PO SCH (09:00)
[2022-12-15] MEDS: DEXTROSE 5%/0.9% SOD CHL 1,000 ML IV SCH ×2 (09:04→18:11)
[2022-12-15] MEDS: BALSAM PERU/CASTOR OIL 60 GM OINT...G. TP SCH (09:04)
[2022-12-15] MEDS: DIGOXIN 0.125 MG TAB PO SCH (11:26)
[2022-12-15] MEDS: MIDODRINE HCL 5 MG TABLET PO SCH ×2 (11:26→16:28)
[2022-12-15] MEDS: METOPROLOL TARTRATE 25 MG TAB PO SCH ×2 (11:32→12:36)
[2022-12-15] MEDS: RIVAROXABAN 20 MG TABLET PO SCH (16:28)
[2022-12-15] MEDS: ACETAMINOPHEN 325 MG TAB PO PRN (20:24)
[2022-12-15] MEDS: ATORVASTATIN 40 MG TAB PO SCH (20:24)
[2022-12-15] MEDS: ONDANSETRON HCL INJ 2MG/ML 2ML 2 MG/ML VIAL IV PRN (20:34)
[2022-12-16] VITALS (19 sets, daily range): BP systolic 98–119; BP diastolic 66–110
[2022-12-16] MEDS: DEXTROSE 5%/0.9% SOD CHL 1,000 ML IV SCH ×2 (05:24→21:13)
[2022-12-16] MEDS: MIDODRINE HCL 5 MG TABLET PO SCH ×3 (08:01→16:41)
[2022-12-16] MEDS: DIGOXIN 0.125 MG TAB PO SCH (08:01)
[2022-12-16] MEDS: METOPROLOL TARTRATE 25 MG TAB PO SCH ×2 (08:01→16:41)
[2022-12-16] MEDS: FAMOTIDINE 20 MG TAB PO SCH ×2 (08:01→16:41)
[2022-12-16] MEDS: BALSAM PERU/CASTOR OIL 60 GM OINT...G. TP SCH (08:02)
[2022-12-16] MEDS: SPIRONOLACTONE 25 MG TAB PO SCH (08:02)
[2022-12-16 09:47] LABS: BASOPHILS % 0.6 % (0.0-1.0); EOSINOPHILS # (AUTO) 0.2 (0.0-0.4); EOSINOPHILS % 2.4 % (0.0-6.0); HEMATOCRIT 38.4 % (34.2-44.1); HEMOGLOBIN 11.1 g/dL (12.0-16.0); LYMPHOCYTES # (AUTO) 0.7 (1.0-3.2); LYMPHOCYTES % 10.5 % (18.0-39.1); MEAN CORPUSCULAR HEMOGLOBIN 31.1 pg (28-32); MEAN CORPUSCULAR HGB CONC 28.9 g/dL (31-35); MEAN CORPUSCULAR VOLUME 107.6 fL (81-99); MONOCYTES # (AUTO) 0.7 (0.2-0.8); MONOCYTES % 10.7 % (4.4-11.3); NEUTROPHILS # (AUTO) 4.8 (2.1-6.9); NEUTROPHILS % 75.5 % (38.7-80.0); PLATELET COUNT 236 x10e3/uL (140-360); RED BLOOD COUNT 3.57 x10e6/uL (3.6-5.1); RED CELL DISTRIBUTION WIDTH 17.1 % (11.7-14.4)
[2022-12-16 10:00] LABS: ANION GAP 10.8 mmol/L (8-16); CALCIUM 8.2 mg/dL (8.4-10.2); CREATININE, SERUM 0.81 mg/dL (0.57-1.11); POTASSIUM 3.8 mmol/L (3.5-5.1)
[2022-12-16 10:12] LABS: MAGNESIUM 1.6 MG/DL (1.3-2.1); PHOSPHORUS 1.9 MG/DL (2.3-4.7)
[2022-12-16] MEDS: RIVAROXABAN 20 MG TABLET PO SCH (16:41)
[2022-12-16] MEDS: ATORVASTATIN 40 MG TAB PO SCH (20:03)
[2022-12-17] VITALS (19 sets, daily range): BP systolic 88–128; BP diastolic 60–107
[2022-12-17] MEDS: ACETAMINOPHEN 325 MG TAB PO PRN ×2 (05:22→13:49)
[2022-12-17 05:55] LABS: BASOPHILS % 0.4 % (0.0-1.0); EOSINOPHILS # (AUTO) 0.2 (0.0-0.4); EOSINOPHILS % 2.7 % (0.0-6.0); HEMATOCRIT 39.1 % (34.2-44.1); HEMOGLOBIN 11.3 g/dL (12.0-16.0); LYMPHOCYTES # (AUTO) 0.8 (1.0-3.2); LYMPHOCYTES % 11.5 % (18.0-39.1); MEAN CORPUSCULAR HEMOGLOBIN 31.1 pg (28-32); MEAN CORPUSCULAR HGB CONC 28.9 g/dL (31-35); MEAN CORPUSCULAR VOLUME 107.7 fL (81-99); MONOCYTES # (AUTO) 0.6 (0.2-0.8); MONOCYTES % 8.7 % (4.4-11.3); NEUTROPHILS # (AUTO) 5.5 (2.1-6.9); NEUTROPHILS % 76.4 % (38.7-80.0); PLATELET COUNT 216 x10e3/uL (140-360); RED BLOOD COUNT 3.63 x10e6/uL (3.6-5.1)
[2022-12-17 06:12] LABS: ANION GAP 8.9 mmol/L (8-16); CALCIUM 8.2 mg/dL (8.4-10.2); CREATININE, SERUM 0.81 mg/dL (0.57-1.11); POTASSIUM 3.9 mmol/L (3.5-5.1)
[2022-12-17 06:13] LABS: MAGNESIUM 1.6 MG/DL (1.3-2.1)
[2022-12-17 06:40] LABS: THYROID STIMULATING HORMONE 1.73 uIU/mL (0.350-4.940)
[2022-12-17] MEDS: SPIRONOLACTONE 25 MG TAB PO SCH (08:25)
[2022-12-17] MEDS: MIDODRINE HCL 5 MG TABLET PO SCH ×3 (08:25→17:12)
[2022-12-17] MEDS: DIGOXIN 0.125 MG TAB PO SCH (08:25)
[2022-12-17] MEDS: METOPROLOL TARTRATE 25 MG TAB PO SCH ×2 (08:26→17:12)
[2022-12-17] MEDS: FAMOTIDINE 20 MG TAB PO SCH ×2 (08:26→17:12)
[2022-12-17] MEDS: BALSAM PERU/CASTOR OIL 60 GM OINT...G. TP SCH (08:27)
[2022-12-17] MEDS ORDERED: MAGNESIUM SULFATE 2GM/50ML IV ONE (08:30)
[2022-12-17] MEDS ORDERED: MAGNESIUM SULFATE 2GM/50ML 50 ML IV ONE (09:00)
[2022-12-17] MEDS ORDERED: POTASSIUM PHOSPHATE 20 MM in SODIUM CHLORIDE 0.9% 250ML 250 ML IV ONE (11:00)
[2022-12-17] MEDS: RIVAROXABAN 20 MG TABLET PO SCH (17:11)
[2022-12-17] MEDS: DEXTROSE 5%/0.9% SOD CHL 1,000 ML IV SCH (17:12)
[2022-12-17] MEDS: ATORVASTATIN 40 MG TAB PO SCH (21:00)
[2022-12-18] VITALS (18 sets, daily range): BP systolic 87–120; BP diastolic 57–90
[2022-12-18 06:34] LABS: PHOSPHORUS 2.4 MG/DL (2.3-4.7)
[2022-12-18 06:35] LABS: ANION GAP 10.8 mmol/L (8-16); CREATININE, SERUM 0.73 mg/dL (0.57-1.11); POTASSIUM 3.8 mmol/L (3.5-5.1)
[2022-12-18] MEDS: ONDANSETRON HCL INJ 2MG/ML 2ML 2 MG/ML VIAL IV PRN (06:40)
[2022-12-18] MEDS: FAMOTIDINE 20 MG TAB PO SCH ×2 (08:08→16:52)
[2022-12-18] MEDS: MIDODRINE HCL 5 MG TABLET PO SCH ×3 (08:08→16:52)
[2022-12-18] MEDS: SPIRONOLACTONE 25 MG TAB PO SCH (08:09)
[2022-12-18] MEDS: METOPROLOL TARTRATE 25 MG TAB PO SCH ×3 (08:10→16:52)
[2022-12-18] MEDS: BALSAM PERU/CASTOR OIL 60 GM OINT...G. TP SCH (08:13)
[2022-12-18] MEDS: FUROSEMIDE INJ 10 MG/ML 4 ML VIAL IV SCH (09:05)
[2022-12-18] MEDS: NYSTATIN/TRIAMCINOLONE 15 GM CR TOP SCH ×2 (10:53→16:53)
[2022-12-18] MEDS: DEXTROSE 5%/0.9% SOD CHL 1,000 ML IV SCH ×2 (10:53→21:04)
[2022-12-18] MEDS: RIVAROXABAN 20 MG TABLET PO SCH (16:52)
[2022-12-18] MEDS: ATORVASTATIN 40 MG TAB PO SCH (20:26)
[2022-12-19] VITALS (19 sets, daily range): BP systolic 93–135; BP diastolic 66–107
[2022-12-19] MEDS: DEXTROSE 5%/0.9% SOD CHL 1,000 ML IV SCH ×2 (06:38→17:38)
[2022-12-19] MEDS: FAMOTIDINE 20 MG TAB PO SCH ×2 (07:54→17:37)
[2022-12-19] MEDS: METOPROLOL TARTRATE 25 MG TAB PO SCH ×2 (07:54→17:37)
[2022-12-19] MEDS: MIDODRINE HCL 5 MG TABLET PO SCH ×3 (07:54→17:37)
[2022-12-19] MEDS: FUROSEMIDE INJ 10 MG/ML 4 ML VIAL IV SCH (07:54)
[2022-12-19] MEDS: BALSAM PERU/CASTOR OIL 60 GM OINT...G. TP SCH (07:55)
[2022-12-19] MEDS: NYSTATIN/TRIAMCINOLONE 15 GM CR TOP SCH ×2 (07:55→17:38)
[2022-12-19] MEDS ORDERED: ALPRAZOLAM 0.25 MG TAB PO PRN (14:30)
[2022-12-19] MEDS: RIVAROXABAN 20 MG TABLET PO SCH (17:37)
[2022-12-19] MEDS: ATORVASTATIN 40 MG TAB PO SCH (20:10)
[2022-12-20] VITALS (11 sets, daily range): BP systolic 80–128; BP diastolic 58–88
[2022-12-20] MEDS: DEXTROSE 5%/0.9% SOD CHL 1,000 ML IV SCH ×2 (03:37→11:20)
[2022-12-20] MEDS: MIDODRINE HCL 5 MG TABLET PO SCH ×3 (08:35→16:12)
[2022-12-20] MEDS: FAMOTIDINE 20 MG TAB PO SCH ×2 (08:35→16:12)
[2022-12-20] MEDS: METOPROLOL TARTRATE 25 MG TAB PO SCH ×2 (08:36→16:15)
[2022-12-20] MEDS: NYSTATIN/TRIAMCINOLONE 15 GM CR TOP SCH ×2 (08:36→16:13)
[2022-12-20] MEDS: FUROSEMIDE INJ 10 MG/ML 4 ML VIAL IV SCH (08:36)
[2022-12-20] MEDS: BALSAM PERU/CASTOR OIL 60 GM OINT...G. TP SCH (08:36)
[2022-12-20] MEDS ORDERED: RIVASTIGMINE PATCH 4.6MG/24 HOURS PATCH TD SCH (09:00)
[2022-12-20] MEDS: RIVAROXABAN 20 MG TABLET PO SCH (16:13)
== END 2022-12-20 20:00 | disposition hospice, home (50) | DRG 871 ==
LOC: ER 12:43 → ERHOLD 17:12 → ICU 12-14 07:31
PROVIDERS: ADMIT Internal Medicine; ATTEND Internal Medicine
DX: A41.9 Sepsis, unspecified organism (principal); G92.8 Other toxic encephalopathy; J69.0 Pneumonitis due to inhalation of food and vomit; R65.21 Severe sepsis with septic shock; I50.43 Acute on chronic combined systolic (congestive) and diastolic (congestive) heart failure; I48.20 Chronic atrial fibrillation, unspecified; F05 Delirium due to known physiological condition; Z79.01 Long term (current) use of anticoagulants; Z86.73 Personal history of transient ischemic attack (TIA), and cerebral infarction without residual deficits; Z68.32 Body mass index [BMI] 32.0-32.9, adult; E78.2 Mixed hyperlipidemia; E11.69 Type 2 diabetes mellitus with other specified complication; Z20.822 Contact with and (suspected) exposure to COVID-19; Z79.899 Other long term (current) drug therapy; E87.8 Other disorders of electrolyte and fluid balance, not elsewhere classified; Z66 Do not resuscitate; Z85.3 Personal history of malignant neoplasm of breast; R33.9 Retention of urine, unspecified; M19.90 Unspecified osteoarthritis, unspecified site; I11.0 Hypertensive heart disease with heart failure; Z74.01 Bed confinement status; Z99.3 Dependence on wheelchair; G30.9 Alzheimer's disease, unspecified; F02.80 Dementia in other diseases classified elsewhere, unspecified severity, without behavioral disturbance, psychotic disturbance, mood disturbance, and anxiety; E66.01 Morbid (severe) obesity due to excess calories; J44.9 Chronic obstructive pulmonary disease, unspecified
CPT/HCPCS: 36415; 51700; 70450; 71045; 71250; 74230; 80048; 80053; 80061; 80162; 80307; 81001; 82550; 82553; 82746; 82948; 83605; 83735; 83880; 84100; 84443; 84484; 85025; 85610; 87040; 87086; 93005; 93306; 94799; 95819; 99252; 99285; J0696; J1160; J1940; J2060; J2185; J2405; J3475; J7030; J7042; J7050